=== PATIENT | female | born 1960 | race Caucasian/White ===

== ENCOUNTER 2019-05-02 12:40 | Outpatient (CLI) | payer BC, SELFPAY ==
--- NOTE | ~2019-05-02 | XR_ITS ---
EXAMINATION: XR chest 2V EXAM DATE: 05/02/2019 13:05 INDICATION: Costal margin pain, left-sided chest pain. Bronchitis. TECHNIQUE: Frontal and lateral projections of the chest obtained and reviewed. Comparison is made to prior examination from 01/14/2018. FINDINGS: Mild hyperinflation. The lungs are clear. There are no pleural effusions. The cardiomedi astinal silhouette is within normal limits. There is no pneumothorax suspected. The bones and soft tissues are unremarkable. IMPRESSION: No acute cardiopulmonary findings. Reviewed, dictated and finalized at location B. A ATTORNEY
== END 2019-05-02 12:41 | disposition home or self-care (01) ==
LOC: ANHIMG 12:46
PROVIDERS: PCP Physician Assistant; Visit Provider Physician Assistant
DX: R07.81 Pleurodynia (principal)
CPT/HCPCS: 71046

== ENCOUNTER 2019-08-01 13:11 | Outpatient (CLI) | payer BC, SELFPAY ==
--- NOTE | ~2019-08-01 | MM_ITS ---
EXAMINATION: MM diag cuong implant BI w olimpia HISTORY: Disorder of the breast implant, patient feels implants are more firm than previously at thei r medial and lateral aspects TECHNIQUE: Craniocaudal, mediolateral, and mediolateral oblique 3-D tomosynthesis images with implant displacement of the breasts were performed and synthetic 2-D images were generated. Craniocaudal, m ediolateral oblique, and mediolateral views of the breasts without implant displacement were obtained using full field digital mammography. CAD analysis was submitted and interpreted. COMPARISON: 02/17/2012 BREAST PARENCHYMAL COMPOSITION: There are scattered areas of fibroglandular density. FINDINGS: There is no evidence of suspicious mass, calcification, or architectural distortion in either breast to suggest malignancy. There has been no suspicious interval change. There is no mammographic corre late for the patient's reported breast implant abnormality. IMPRESSION: 1. No mammographic evidence for malignancy or mammographic correlate for the patient's questionable b reast implant abnormality. If implant integrity is in question, consider evaluation with MRI. 2. Recommend routine screening mammography in one year. BI-RADS Category 1: Negative Reviewed, dictated and finalized at location A. IMPRESSION: 1. No mammographic evidence for malignancy or mammographic correlate for the pa tient's questionable breast implant abnormality. If implant integrity is in que stion, consider evaluation with MRI. 2. Recommend routine screening mammography in one year. BI-RADS Category 1: Negative
== END 2019-08-01 13:12 | disposition home or self-care (01) ==
LOC: ANHIMG 13:21
PROVIDERS: PCP Physician Assistant; Visit Provider Physician Assistant
DX: T85.9XXA Unspecified complication of internal prosthetic device, implant and graft, initial encounter (principal)
CPT/HCPCS: 77062; 77066; G0279

== ENCOUNTER 2019-11-01 00:26 | Outpatient (CLI) | payer BC, SELFPAY ==
[2019-11-01 18:41] LABS: SARS-CoV-2 RNA PCR Negative
== END 2019-11-01 00:27 | disposition home or self-care (01) ==
LOC: ANHCOVIDDT 00:27
PROVIDERS: PCP Physician Assistant; Visit Provider Surgery Plastic and Reconstructive Surgery
DX: Z01.812 Encounter for preprocedural laboratory examination (principal); Z20.828 Contact with and (suspected) exposure to other viral communicable diseases
CPT/HCPCS: 87635; C9803; U0003

== ENCOUNTER 2019-11-01 09:00 | Outpatient (CLI) | payer BC, SELFPAY ==
--- NOTE | 2019-11-01 09:01 | ECG_ITS ---
Measurements Intervals [place] Rate: 67 P: 45 UT: 176 QRS: 37 QRSD: 77 T: 46 QT: 386 QTc: 409 Interpretive Statements SINUS RHYTHM RSR' IN V1 OR V2, PROBABLY NORMAL VARIANT BASELINE ARTIFACT- I, II, III, AVL, AVF NORMAL ECG Electronically Signed On 11-01-2019 10:16:01 CDT by Rome Kemp D.O.
== END 2019-11-01 09:01 | disposition home or self-care (01) ==
LOC: ANHSURGERY 09:01
PROVIDERS: PCP Physician Assistant; Visit Provider Surgery Plastic and Reconstructive Surgery
DX: Z01.818 Encounter for other preprocedural examination (principal); E78.00 Pure hypercholesterolemia, unspecified
CPT/HCPCS: 93005

== ENCOUNTER 2019-11-03 01:08 | Day surgery (SDC) | payer BC, SELFPAY ==
[2019-10-18 15:05] VITALS: BMI 29.0
[2019-11-03] VITALS (10 sets, daily range): BP systolic 140–170; BP diastolic 76–84; PULSE 66–81; RESP 15–20; TEMP 36.4–36.9; O2SAT 90–100
--- NOTE | 2019-11-03 09:02 | WPDANESEPPF ---
Anes - Initial Pre Proc Eval Procedure: Operation Date: 11/03/19 10:30 Proposed Procedures p Removal Bilateral Breast Implants - Surinder Long MD Date/Time: 11/03/19 09:02 Surgeon: Surinder Long MD Pre Op Diagnosis: hx of breast augmentation Patient Data Age: 59 Gender: F Height: 5 ft 6 in Weight: 81.65 kg Allergies Allergy/AdvReac Type Severity Reaction Status Date / Time No Known Allergies Allergy Verified 10/18/19 15:06 Home Medications Medication Instructions Recorded Confirmed Type atorvastatin 10 mg PO DAILY 10/18/19 10/18/19 History docusate sodium 100 mg capsule 100 mg PO BID #14 cap 10/18/19 10/18/19 Rx duloxetine 60 mg PO DAILY 10/18/19 10/18/19 History hydrocodone 5 mg-acetaminophen 325 1 tablet PO Q6H PRN #15 tablet 10/18/19 10/18/19 Rx mg tablet multivitamin 1 tablet PO DAILY 10/18/19 10/18/19 History ondansetron HCl 4 mg tablet 4 mg PO Q6H PRN #30 tablet 10/18/19 10/18/19 Rx sumatriptan succinate 100 mg PO DAILY PRN 10/18/19 10/18/19 History zolpidem 12.5 mg PO HS PRN 10/18/19 10/18/19 History Patient hx anesthesia problems: none Family hx anesthesia problems: none PMFSH Past Medical History Medical History (Updated 11/03/19 @ 09:03 by Nick Ham MD) Anxiety Hx of migraines Hyperlipidemia Social History Social History Smoking packs per day: 0.5 Smoking cigarettes per day: 10.0 Years smoked: 5 Smoking pack-years: 2.50 Smoking status: Former smoker Tobacco type: cigarettes Additional smoking assessment comments: QUIT 20 YEARS AGO Alcohol intake: current Spiritual care concerns: No Anes - Eval Final PreProcedure Day of Procedure 11/03/19 09:02 Patient weight: overweight Heart: regular rate and rhythm Lungs: clear to auscultation Airway: Mallampati scale class II Neurological: alert and oriented Last oral intake: >/= 8 hours ASA classification: II Emergent: no Anesthetic plan: proceed Anesthesia type and monitoring: general LMA and standard monitoring Informed Consent: The patient's anesthetic plan and its attendant risks and benefits were discussed with the patient/family/POA. Questions were solicited and answers provided to the satisfaction of the patient/family/POA.
[2019-11-03] MEDS: LACTATED RINGERS 1,000 ML 30 ML IV CONT ×2 (09:10→13:05)
[2019-11-03] MEDS: SCOPOLAMINE 1.5 MG PATCH TRANSDERM (09:28)
--- NOTE | 2019-11-03 10:45 | WPDHPUPDATE1 ---
History and Physical Update Update Date/Time: 11/03/19 10:45 History and Physical has been reviewed, including an updated exam of the patient. There are NO changes in the patient's condition. Risks, benefits, and alternatives have been discussed and questions answered. Patient agrees to proceed with procedure.
--- NOTE | 2019-11-03 11:13 | P.OP_ITS ---
Procedure Note - Detailed Date of procedure: 11/03/19 Pre-op diagnosis: hx of breast augmentation Post-op diagnosis: same Procedure performed: 1. Bilateral implant removal (intact) 2. Bilateral capsulectomy Description of procedure: Patient was marked in the preoperative holding area with her verification. We had a lengthy discussion about risks, benefits, alternatives. As very up front is going to motion all process with such a kory nge in appearance. Further we discussed this may not resolve any of the symptoms she is having. I was very up front honest that I may not be able remove the entire capsule. This was outlined in great detail making sure she was well informed and made an informed decision. All questions answered and consent obtained. She would like proceed. She was taken to the operating room placed supine on the operating room table. Anesthesia was provided by anesthesiology and prepped and draped in a standard sterile fashion. Surgical time-out was taken. 1% lidocaine and 0.25% Marcaine with epinephrine was used to provide a field block. Fifteen blade used to make an incision along the IMF. Dissection was continued down to the capsule was identified. I was able to remove all of the capsule bilateral. Fifteen Lyle drains were brought out laterally and sutured into place. I closed with 2-0 Vicryl followed by 3-0 Monocryl in a running subcuticular 4-0 Monocryl and tissue glue. She was awoke and taken the PACU without difficulty. All instrument sponge counts were correct at the end of the case. Anesthesia: GLMA Surgeon: Surinder Long MD Estimated blood loss (mL): 10 Drains: Yes (Bilateral lyle drain) Packing: No Pathology: yes (Bilateral capsules) Complications: No immediate complications Condition: stable Disposition: PACU Findings: Textured implants
[2019-11-03] MEDS: ceFAZolin 2 GM/D5W 50 ML 2 GM/50 ML BAG IVPB (11:28)
[2019-11-03] MEDS: LIDO 1%/EPINEPHRINE 1:100,000 20 ML VIAL 40 ML INFILTRATE (12:05)
== END 2019-11-03 15:42 | disposition home or self-care (01) ==
PROVIDERS: PCP Physician Assistant; Visit Provider Surgery Plastic and Reconstructive Surgery
PROC: 0HPT0JZ Removal of Synthetic Substitute from Right Breast, Open Approach (ICD-10-PCS; CPT 19371; principal; 2019-11-03 10:30)
DX: Z45.812 Encounter for adjustment or removal of left breast implant (principal); Z45.811 Encounter for adjustment or removal of right breast implant; E66.3 Overweight; Z68.30 Body mass index [BMI] 30.0-30.9, adult; F41.9 Anxiety disorder, unspecified; G43.909 Migraine, unspecified, not intractable, without status migrainosus
CPT/HCPCS: 19371; 88304; 88305; A9270; J0690; J1100; J2250; J2370; J2405; J2704; J3010; J7120

== ENCOUNTER 2019-11-30 00:30 | Day surgery (SDC) | payer BC, SELFPAY ==
[2019-11-29 13:22] VITALS: BMI 27.4
[2019-11-30] VITALS (7 sets, daily range): BP systolic 131–151; BP diastolic 74–86; PULSE 62–78; RESP 14–18; TEMP 36.1–36.2; O2SAT 97–100
--- NOTE | 2019-11-30 09:40 | WPDHPUPDATE1 ---
History and Physical Update Update Date/Time: 11/30/19 09:40 History and Physical has been reviewed, including an updated exam of the patient. There are NO changes in the patient's condition. Risks, benefits, and alternatives have been discussed and questions answered. Patient agrees to proceed with procedure.
--- NOTE | 2019-11-30 09:47 | WPDANESEPPF ---
Anes - Initial Pre Proc Eval Procedure: Operation Date: 11/30/19 11:30 Proposed Procedures p Left Breast Washout - Surinder Long MD Date/Time: 11/30/19 09:47 Surgeon: Surinder Long MD Pre Op Diagnosis: Possible Left Breast Infection Patient Data Age: 59 Gender: F Height: 5 ft 8 in Weight: 88.4 kg Last Vital Signs Temp 36.2 C L 11/30/19 09:40 Pulse 78 11/30/19 09:40 Resp 16 11/30/19 09:40 BP 136/74 11/30/19 09:40 Pulse Ox 99 11/30/19 09:40 Allergies Allergy/AdvReac Type Severity Reaction Status Date / Time No Known Allergies Allergy Verified 11/30/19 09:36 Home Medications Medication Instructions Recorded Confirmed Type atorvastatin 10 mg PO DAILY 10/18/19 11/30/19 History docusate sodium 100 mg capsule 100 mg PO BID #14 cap 10/18/19 11/30/19 Rx duloxetine 60 mg PO DAILY 10/18/19 11/30/19 History hydrocodone 5 mg-acetaminophen 325 1 tablet PO Q6H PRN #15 tablet 10/18/19 11/30/19 Rx mg tablet multivitamin 1 tablet PO DAILY 10/18/19 11/30/19 History ondansetron HCl 4 mg tablet 4 mg PO Q6H PRN #30 tablet 10/18/19 11/30/19 Rx sumatriptan succinate 100 mg PO DAILY PRN 10/18/19 11/30/19 History zolpidem 12.5 mg PO HS PRN 10/18/19 11/30/19 History Patient hx anesthesia problems: post op nausea/vomiting Family hx anesthesia problems: none PMFSH Past Medical History Medical History Anxiety Hx of migraines Hyperlipidemia Social History Social History Smoking packs per day: 0 Smoking cigarettes per day: 0.0 Years smoked: 15 Smoking pack-years: 0.00 Smoking status: Former smoker Tobacco type: cigarettes Additional smoking assessment comments: QUIT 20 YEARS AGO Alcohol intake: never Substance use: never Substance use type: does not use Last use: 1999 Living arrangements: with family Gender identity (if verbalized by the patient): Female Sexual Orientation (if Verbalized by the Patient): Straight or Heterosexual Spiritual care concerns: No Anes - Eval Final PreProcedure Day of Procedure 11/30/19 09:47 Patient weight: overweight Heart: regular rate and rhythm Lungs: clear to auscultation Airway: Mallampati scale class II Neurological: alert and oriented Last oral intake: >/= 8 hours ASA classification: III Emergent: no Anesthetic plan: proceed Anesthesia type and monitoring: general LMA and standard monitoring Informed Consent: The patient's anesthetic plan and its attendant risks and benefits were discussed with the patient/family/POA. Questions were solicited and answers provided to the satisfaction of the patient/family/POA.
[2019-11-30] MEDS: LACTATED RINGERS 1,000 ML 30 ML IV CONT (09:48)
--- NOTE | 2019-11-30 09:54 | PM.PROC ---
Procedure Note - Detailed Date of procedure: 11/30/19 Pre-op diagnosis: Possible Left Breast Infection Left breast hematoma Post-op diagnosis: same Procedure performed: washout left breast Description of procedure: She underwent bilateral implant removal with bilateral capsulectomy on 11/03/2019. Soon after the procedure her left drain had limited output / did not appear to be functioning well. She developed some fluid collection old hematoma in left breast. Cultures were taken from the left breast identified Staph Aureus however she has never had any clinical signs of infection. She has elected to proceed to the operating room for formalized washout of left breast hematoma and drain placement. Risks, benefits, alternatives were discussed in extensive detail. I want her to be very realistic about the risks involved as well as expectations. Made sure answered all of her questions to her satisfaction and consent obtained. She was marked in the preoperative holding area with her verification. She was taken to the operating room placed supine on the operating room table. Anesthesia was provided by anesthesiology and prepped and draped in a standard sterile fashion. Surgical time-out was taken. 1% lidocaine and 0.25% Marcaine with epinephrine was used to provide a field block. A 15 blade used to excise along the previous IMF scar. Under the pocket and old hematoma was identified. I did not see any purulence. I copiously irrigated with 3 L of saline solution on TUR tubing. A 15 Freeman drain was placed and brought out axillary. Hemoderm was used. This was sutured with 3-0 nylon. I closed the incision with 2-0 Vicryl followed by 3-0 Monocryl in a running subcuticular 4-0 Monocryl and tissue glue. She tolerated well. No active bleeding was identified. She was woken taken the PACU without difficulty. All instrument sponge counts were correct at the end of the case. Surgeon: Surinder Long MD Estimated blood loss (mL): 10 Drains: Yes ( Left Freeman drain) Packing: No Pathology: none sent Complications: No immediate complications Condition: stable Disposition: PACU Findings: Old hematoma. No robin purulence.
[2019-11-30] MEDS: SCOPOLAMINE 1.5 MG PATCH TRANSDERM (09:55)
[2019-11-30] MEDS: ceFAZolin 2 GM/D5W 50 ML 2 GM/50 ML BAG IVPB (10:06)
[2019-11-30] MEDS: LIDO 1%/EPINEPHRINE 1:100,000 20 ML VIAL 15 ML INFILTRATE (10:06)
--- NOTE | 2019-11-30 11:00 | SUR.OPER ---
EBL:20
== END 2019-11-30 13:20 | disposition home or self-care (01) ==
PROVIDERS: PCP Physician Assistant; Visit Provider Surgery Plastic and Reconstructive Surgery
PROC: (CPT 10140; principal; 2019-11-30 11:30)
DX: L76.34 Postprocedural seroma of skin and subcutaneous tissue following other procedure (principal); F41.9 Anxiety disorder, unspecified; E78.5 Hyperlipidemia, unspecified; Z87.891 Personal history of nicotine dependence
CPT/HCPCS: 10140; A9270; J0690; J1100; J2250; J2370; J2405; J2704; J3010; J7120

== ENCOUNTER 2020-01-29 21:50 | Outpatient (NON) | payer BC, SELFPAY | END 2020-01-29 21:51 | LOC: ANHLAB 21:54 | PROVIDERS: PCP Physician Assistant; Visit Provider Surgery Plastic and Reconstructive Surgery | DX: T14.8XXA Other injury of unspecified body region, initial encounter (principal) | CPT/HCPCS: 87070; 87075; 87147; 87186; 87205 ==

== ENCOUNTER 2020-02-13 10:02 | Outpatient (CLI) | payer BC, SELFPAY ==
--- NOTE | ~2020-02-13 | XR_ITS ---
EXAMINATION: XR heel LT min 2V DATE: 02/13/2020 11:07 INDICATION: Left heel pain. TECHNIQUE: 2 views of left calcaneus were obtained. COMPARISON: None. FINDINGS: Bone alignment is normal. No fracture. Joint spaces are normal. There are enthesophytes at the posterior and plantar aspects of calcaneal tuberosity. IMPRESSION: 1. No fracture. Reviewed, dictated and finalized at location A. UME RENTAL CLERK IMPRESSION: 1. No fracture.
--- NOTE | ~2020-02-13 | US_ITS ---
EXAMINATION:US venous doppler LE BI INDICATION:Leg pain and swelling TECHNIQUE: Multiple grayscale, color flow and Doppler images of the right and left lower extremity de ep venous systems were obtained and reviewed. COMPARISON:No prior studies for comparison. FINDINGS: The common femoral, superficial femoral and popliteal veins demonstrate normal respiratory variation, augmentation and compressibility. Color flow is also seen within the posterior tibial, pe roneal, greater saphenous and profunda veins. IMPRESSION: 1: No lower extremity deep venous thrombosis. Reviewed, dictated and finalized at location A. O ADJUSTER
== END 2020-02-13 10:03 | disposition home or self-care (01) ==
PROVIDERS: PCP Physician Assistant; Visit Provider Physician Assistant
DX: R60.0 Localized edema (principal); M79.672 Pain in left foot
CPT/HCPCS: 73650; 93970

== ENCOUNTER 2020-02-28 12:32 | Outpatient (CLI) | payer BC, SELFPAY ==
--- NOTE | 2020-02-28 | ECHO_ITS ---
Patient Info Name: Jennyfer Cancino Age: 60 years : 1960 Gender: Female Ht: 66 in Wt: 180 lbs BSA: 1.97 m2 HR: 67 bpm BP: 137 / 88 mmHg Heart Rhythm: Sinus Rhythm Technical Quality: Good Exam Date: 02/28/2020 1:18 PM Exam Location: [facility] Patient Status: Outpatient Admit Date: 02/28/2020 Staff Ordering Physician: SorenPayal PA-C Overnight Associate: Naseem Foster RDCS Attending Provider: PaigePayal PA-C Exam Type: CA echo doppler color flow Study Info Indications R60.0 - Localized edema Complete two-dimensional, color flow and Doppler transthoracic echocardiogram is performed. History/Risk Factors Edema. Summary 1. Complete two-dimensional, color flow and Doppler transthoracic echocardiogram is performed. 2. Left ventricular chamber size, wall thickness, systolic and diastolic function are normal with no regional wall motion abnormalities with an estimated ejection fraction of 65-70%. 3. There is mild tricuspid valve regurgitation. 4. Borderline pulmonary hypertension, estimated pulmonary arterial systolic pressure is 38 mmHg. 5. Normal sinus rhythm. Left Ventricle Left ventricular chamber dimension is normal. Left ventricular systolic function is normal, estimated at 65-70%. There is no increased left ventricular wall thickness. Left ventricular septal wall motion is normal. The left ventricular diastolic function is normal. Left ventricular chamber size, wall thickness, systolic and diastolic function are normal with no regional wall motion abnormalities with an estimated ejection fraction of 65-70%. Right Ventricle Right ventricular chamber dimension is normal. Right ventricular systolic function is normal. Left Atria Left atrial chamber dimension is normal. Right Atria Right atrial chamber dimension is normal. Aortic Valve The aortic valve is trileaflet. There is no aortic valve sclerosis. There is no aortic valve stenosis. There is trace aortic valve regurgitation. Pulmonic Valve The pulmonic valve is normal. There is no pulmonic valve stenosis. There is trace pulmonic regurgitation. Mitral Valve The mitral valve has normal leaflets. There is no mitral valve stenosis. There is trace mitral valve regurgitation. Tricuspid Valve The tricuspid valve leaflets are normal. There is no significant tricuspid valve stenosis. There is mild tricuspid valve regurgitation. Borderline pulmonary hypertension, estimated pulmonary arterial systolic pressure is 38 mmHg. Pericardium/Pleural The pericardium appears normal. There is no pericardial effusion. Inferior Vena Cava Dilated inferior vena cava with >50% collapse upon inspiration consistent with Empty right atrial pressure, 5 mmHg. Aorta The aortic root size at the sinus of Valsalva is normal. The prox ascending aorta size is normal. Left Ventricular Outflow Tract Name Value Normal LVOT 2D LVOT Diameter 2.0 cm LVOT Doppler LVOT Peak Gradient 5 mmHg LVOT Mean Gradient 3 mmHg LVOT VTI
== END 2020-02-28 12:33 | disposition home or self-care (01) ==
PROVIDERS: PCP Physician Assistant; Visit Provider Physician Assistant
DX: R60.0 Localized edema (principal); I36.1 Nonrheumatic tricuspid (valve) insufficiency
CPT/HCPCS: 93306; C8929

== ENCOUNTER → 2020-03-26 11:36 | Outpatient (CLI) | payer BC, SELFPAY ==
--- NOTE | ~2020-03-26 | CT_ITS ---
EXAMINATION: CT abdomen pelvis w con DATE: 03/26/2020 12:02 INDICATION: Abdominal distention TECHNIQUE: Computed tomography (CT) of the abdomen and pelvis was performed with 100 cc Omnipaque 350 intravenous contrast. Automated exposure control and iterative reconstruction technique were employe d. Exam dose: 869.35 mGy-cm total exam DLP. COMPARISON: None. FINDINGS: There is minimal atelectasis at the lung bases. Normal heart size. No pericardial or pleura l effusion. Small sliding hiatal hernia. The liver, gallbladder, spleen, bile ducts, pancreas, pancreatic duct and adrenal glands appear jesse l. No renal mass lesion or urinary tract calculus or hydroureteronephrosis or abnormality of the urin naman bladder is evident. Retroverted uterus. There is an approximately 6.2 x 6.4 x 6.7 cm complex mixed cystic and solid mass in the right adnexal area. Pelvic ultrasound is recommended for further evaluation of likely right ovarian mass. Normal caliber and minimal atherosclerotic calcification of the abdominal aorta. No intraperitoneal o r retroperitoneal or pelvic lymphadenopathy is noted. Normal appendix. There is a prominent amount of fecal material in the colon but no evidence of bowel obstruction, bowel wall thickening, pneumatosis or intraperitoneal free air. Very small fat-containing umbilical hernia. Included skeletal structures are unremarkable. IMPRESSION: 6.2 x 6.4 x 6.7 cm complex mixed cystic and solid mass of right adnexal area, likely of ovarian etiology. Consider pelvic ultrasound for further evaluation. Small sliding hiatal hernia Reviewed, dictated and finalized at Location A. Reviewed, dictated and finalized at location B. LOPMENT ADVISOR IMPRESSION: 6.2 x 6.4 x 6.7 cm complex mixed cystic and solid mass of right ad nexal area, likely of ovarian etiology. Consider pelvic ultrasound for further evaluation. Small sliding hiatal hernia
== END ==
PROVIDERS: PCP Physician Assistant; Visit Provider Physician Assistant
DX: R14.0 Abdominal distension (gaseous) (principal); R19.03 Right lower quadrant abdominal swelling, mass and lump; K44.9 Diaphragmatic hernia without obstruction or gangrene
CPT/HCPCS: 74177; Q9967

== ENCOUNTER → 2020-04-17 11:29 | Outpatient (CLI) | payer BC, SELFPAY ==
--- NOTE | ~2020-04-17 | US_ITS ---
EXAMINATION: US pelvic complete w TV DATE: 04/17/2020 11:57 INDICATION: Noninflammatory disorder of uterus. TECHNIQUE: Multiple transabdominal and transvaginal sonographic images of the pelvis were obtained. COMPARISON: CT abdomen and pelvis 03/26/2020 FINDINGS: TRANSABDOMINAL ULTRASOUND: The uterus measures 5.3 x 4.1 x 2.6 cm. There is no free fluid in the pelvis. TRANSVAGINAL ULTRASOUND: The endometrial complex measures 6 mm in thickness. There is a 2.4 x 1.9 x 1.3 cm hypoechoic subseros al uterine fibroid. There is a 6.1 x 6.4 x 6.4 cm solid and cystic mass in right adnexa with vascular flow. The left ovary measures 5.0 x 2.4 x 3.9 cm with vascular flow. IMPRESSION: 1. Enlarged ovaries,, likely metastatic disease from peritoneal carcinomatosis. Ultrasound-guided cor e needle biopsy of a peritoneal mass is recommended. Reviewed, dictated and finalized at location A. NICAL SERVICE REP IMPRESSION: 1. Enlarged ovaries,, likely metastatic disease from peritoneal carcinomatosis. Ultrasound-guided core needle biopsy of a peritoneal mass is recommended.
== END ==
PROVIDERS: PCP Physician Assistant; Visit Provider Physician Assistant
DX: N85.8 Other specified noninflammatory disorders of uterus (principal)
CPT/HCPCS: 76830; 76856

== ENCOUNTER 2020-05-15 07:37 | Outpatient (RCR) | payer BC, SELFPAY ==
[2020-03-05 08:00] VITALS: BMI 29.1
--- NOTE | 2020-03-13 13:02 | WPDPN ---
Progress Note: A&P Assessment and Plan (1) Open wound: Code(s): T14.8XXA - Other injury of unspecified body region, initial encounter Status: Acute Assessment and Plan: Left breast wound is healing. She will continue dressing changes. Follow-up. She has a full list of instructions. Understands what to monitor for. She is going to call with any questions or concerns. (2) History of breast augmentation: Code(s): Z98.82 - Breast implant status Status: Acute (3) Ruptured silicone breast implant: Code(s): T85.43XA - Leakage of breast prosthesis and implant, initial encounter Status: Acute (4) Capsular contracture of breast implant: Code(s): T85.44XA - Capsular contracture of breast implant, initial encounter Status: Acute Review of Systems Review of Systems: All systems reviewed & are unremarkable except as noted in HPI and below Exam Narrative: Exam Narrative: Left breast wound continues to decrease in size. There is no signs of infection. No hematoma. No seroma. See wound care notes. Const: General: comfortable, no acute distress, alert and awake; No acute distress Orientation/consciousness: oriented to person HENMT: Head: normal to inspection Ears: external ears normal General nose exam: Normal external nose present Face and sinus: normal facial exam Eyes: General: appearance normal, both eyes and all related structures Periorbital: periorbital findings normal Eyelids: eyelids normal Conjunctivae: conjunctivae normal Neck: Neck: normal visual inspection Chest: Chest palpation & inspection: normal inspection of the chest Resp: Effort & Inspection: normal respiratory effort and able to speak in complete sentences GI: Inspection: normal to inspection Neuro: General: oriented to person Psych: Appearance: grossly normal Mental Status: mental status grossly normal Objective Data Meds/Results Medications: Active Medications Generic Name Dose Route Start Last Admin Trade Name Freq PRN Reason Stop Dose Admin Mupirocin 1 applic 03/05/20 08:38 Mupirocin 2% Oint 22 Gm Tube TOPICAL 06/03/20 23:55 PRN PRN Wound Care Silver Nitrate 1 each 03/05/20 08:38 Silv Nitrat (Aqua Ag Rope) 1 Ea Bandage (*Bkc) TOPICAL 06/03/20 23:55 PRN PRN Wound Care Subjective Date/time seen: 12/23/20 13:02 She is here today in follow-up of her left breast wound. Doing very well. No complaints. No fevers or chills. No nausea vomiting. No shortness of breath. No chest pain. She says overall she is feeling quite a bit better (BII symptoms)
--- NOTE | 2020-03-27 15:24 | WPDPN ---
Progress Note: A&P Assessment and Plan (1) Open wound: Code(s): T14.8XXA - Other injury of unspecified body region, initial encounter Status: Acute Assessment and Plan: Left breast continues to heal. Continue dressing changes. Follow-up. She has a full list of instructions. Understands what to monitor for. She is going to call with any questions or concerns. (2) History of breast augmentation: Code(s): Z98.82 - Breast implant status Status: Acute (3) Ruptured silicone breast implant: Code(s): T85.43XA - Leakage of breast prosthesis and implant, initial encounter Status: Acute (4) Capsular contracture of breast implant: Code(s): T85.44XA - Capsular contracture of breast implant, initial encounter Status: Acute Review of Systems Review of Systems: All systems reviewed & are unremarkable except as noted in HPI and below Exam Narrative: Exam Narrative: Left breast wound continues to decrease in size. I see no signs of infection. No purulence. No fluctuance. Objective Data Meds/Results Medications: Active Medications Generic Name Dose Route Start Last Admin Trade Name Freq PRN Reason Stop Dose Admin Mupirocin 1 applic 03/05/20 08:38 Mupirocin 2% Oint 22 Gm Tube TOPICAL 06/03/20 23:55 PRN PRN Wound Care Silver Nitrate 1 each 03/05/20 08:38 Silv Nitrat (Aqua Ag Rope) 1 Ea Bandage (*Bkc) TOPICAL 06/03/20 23:55 PRN PRN Wound Care Subjective Date/time seen: 03/27/20 15:24 She is here today in follow-up of her left breast wound. Doing very well. No complaints. No fevers or chills. No nausea vomiting. No shortness of breath. No chest pain. Again today she states that her systemic symptoms are improved (possible BII symptoms)
--- NOTE | 2020-04-16 13:49 | PCWOUND ---
wocn note patient did not show up for appointment. Patient called very apologetic that she missed her appointment. Rescheduled for 04/24/20 at 1000.
== END 2020-06-03 23:59 | disposition home or self-care (01) ==
LOC: ANHWOC 07:37
PROVIDERS: PCP Physician Assistant; Visit Provider Surgery Plastic and Reconstructive Surgery
DX: S21.002D Unspecified open wound of left breast, subsequent encounter (principal)
CPT/HCPCS: 99211; 99212; 99213; A9270; G0463

== ENCOUNTER 2020-12-08 19:57 | Inpatient (IN) | payer BC, SELFPAY ==
--- NOTE | ~2020-12-08 | XR_ITS ---
EXAMINATION: XR abdomen NG/feed tube insert DATE: 12/12/2020 03:57 INDICATION: Nasogastric tube placement. TECHNIQUE: An upright view of the abdomen was obtained. COMPARISON: CT abdomen and pelvis 12/11/2020 FINDINGS: The lower abdomen is not included. The nasogastric tube tip is in the stomach. There are sm all pleural effusions. There are airspace opacities at the lung bases. There is a right internal jugu lar port with tip in superior vena cava. Calcified mediastinal lymph nodes are consistent with old gr anulomatous disease. IMPRESSION: 1. Nasogastric tube tip in the stomach. 2. Small pleural effusions. 3. Airspace opacities at the lung bases, consistent with atelectasis versus pneumonia. Reviewed, dictated and finalized at location A. IMPRESSION: 1. Nasogastric tube tip in the stomach. 2. Small pleural effusions. 3. Airspace opacities at the lung bases, consistent with atelectasis versus pne umonia.
--- NOTE | ~2020-12-08 | US_ITS ---
US renal BI 12/09/2020 16:28 Procedure: Realtime transabdominal ultrasound of the kidneys and bladder. Indication: Urinary retention. Acute renal insufficiency. Comparison: No prior studies for comparison. Findings: Renal echotexture is normal bilaterally without hydronephrosis, contour deforming mass or r enal calculus. The right kidney measures 9.3 cm and left kidney measures 9.6 cm. There is a Carter cat heter in the bladder. There is ascites. Impression: 1: Unremarkable renal ultrasound. No stones, masses or hydronephrosis. 2: Ascites. Reviewed, dictated and finalized at location A. Impression: 1: Unremarkable renal ultrasound. No stones, masses or hydronephrosis. 2: Ascites.
--- NOTE | ~2020-12-08 | CT_ITS ---
EXAMINATION: CT chest abdomen pelvis wo con DATE: 12/11/2020 09:03 INDICATION: Leukocytosis. TECHNIQUE: Computed tomography (CT) of the chest, abdomen, and pelvis was performed without intraveno us contrast. Automated exposure control and iterative reconstruction technique were employed. The dos e-length product was 1174.19 mGy-cm. COMPARISON: CT abdomen and pelvis 03/26/2020 FINDINGS: CHEST CT: There is mild scarring at the lung apices. There is mild atelectasis in the inferior lungs. There are small pleural effusions. A calcified left lung nodule and calcified left hilar and mediastinal lymph nodes are consistent with old granulomatous disease. There is a right internal jugular port with tip in superior vena cava. The heart size is normal. No pericardial effusion. There is a small sliding h iatal hernia. There is mild thoracic spondylosis. ABDOMEN/PELVIS CT: The liver is normal. There is contrast in the gallbladder. The spleen, pancreas, adrenal glands, and kidneys are normal. There are multiple dilated loops of small bowel with proximal and distal transiti on points in close proximity in right abdomen with mesenteric edema, consistent with closed loop obst ruction. Small bowel is also dilated proximal to the closed loop obstruction. There is a moderate vol ume of ascites. There are likely changes of omentectomy and debulking of peritoneal carcinomatosis. T here are no pathologically enlarged lymph nodes. There is mild lumbar spondylosis. IMPRESSION: 1. Closed loop small bowel obstruction. 2. Moderate volume of ascites. 3. Small pleural effusions. Reviewed, dictated and finalized at location A.
[2020-12-08 19:59] VITALS: BP 145/99; PULSE 114; RESP 20; TEMP 36.4; O2SAT 98
[2020-12-08 20:18] LABS: Basophils Percent Auto 0.2 % (0.2-1.2); Hematocrit 50.7 % (37.0-47.0); Immature Granulocyte Absolute 0.06 K/mm3 (0.00-0.031); Immature Granulocyte Percent A 0.4 % (0-0.5); Lymphocytes Percent Auto 5.4 % (18.3-44.2); Mean Corpuscular HGB Conc 33.5 g/dl (32-36); Mean Corpuscular Hemoglobin 33.1 pg (26-34); Mean Corpuscular Volume 98.6 fl (80-100); Mean Platelet Volume 9.4 fl (7.4-10.4); Monocytes Absolute Auto 0.6 K/mm3 (0.1-0.6); Monocytes Percent Auto 3.4 % (2.6-8.5); Neutrophils Percent Auto 90.6 % (45.5-73.1); Platelet Count Result 307 k/mm3 (150-375); Red Blood Count 5.14 M/mm3 (4.2-5.4); Red Cell Distribution Width 15.9 % (11.5-14.5); White Blood Count 16.6 K/mm3 (4.5-10.0)
[2020-12-08 20:28] LABS: Alanine Aminotransferase 28 U/L (4-35); Albumin Level 4.8 g/dL (3.5-5.1); Alkaline Phosphatase 92 U/L (38-126); Anion Gap 15 mmol/L (8-16); Aspartate Amino Transferase 30 U/L (14-36); Bilirubin,Total 0.4 mg/dL (0.2-1.3); Blood Urea Nitrogen 29 mg/dL (7-17); Calcium 9.7 mg/dL (8.4-10.2); Carbon Dioxide 22 mmol/L (22-30); Chloride 102 mmol/L (98-107); Estimated CRCL calculation 63 ml/min; Estimated Glomerular Filt Rate > 60; Glucose 209 mg/dL (65-110); Lipase 40 U/L (23-300); Potassium 4.7 mmol/L (3.4-5.0); Sodium 139 mmol/L (137-145)
[2020-12-08] MEDS: ONDANSETRON INJ 4 MG/2 ML VIAL IV PUSH (22:33)
[2020-12-08] MEDS: MORPHINE SULFATE (*CRX) 4 MG/ML INJ IV PUSH (22:33)
[2020-12-08] MEDS: SODIUM CHLORIDE 0.9% IV 1,000 ML 999 ML IV CONT (22:33)
--- NOTE | 2020-12-08 22:55 | ED.GENADULT ---
HPI - General Adult General Chief complaint: Abdominal Pain Stated complaint: Abd painc n/v, seen at [facility] Time Seen by Provider: 12/08/20 21:19 History of Present Illness HPI narrative: Patient 60-year-old female presents emerged department with chief complaint of abdominal pain. Patient reports she was seen at [facility] earlier and told that she had some inflammation in her bowel patient was given a prescription for nausea medication and pain medication and discharged home. Patient returns to our emergency department after she is continued to have abdominal pain reports not improved by anything and reports the medications are not working patient denies fever denies chills. Related Data Home Medications Medication Instructions Recorded Confirmed atorvastatin 10 mg PO DAILY 10/18/19 03/05/20 duloxetine 60 mg PO DAILY 10/18/19 11/30/19 multivitamin 1 tablet PO DAILY 10/18/19 03/05/20 sumatriptan succinate 100 mg PO DAILY PRN 10/18/19 03/05/20 zolpidem 12.5 mg PO HS PRN 10/18/19 03/05/20 Allergies Allergy/AdvReac Type Severity Reaction Status Date / Time No Known Allergies Allergy Verified 02/28/20 15:39 Review of Systems Review of Systems: A 10 system review of systems was completed on the patient and is negative except for what is stated in the HPI. Nursing and ancillary documentation was reviewed. [facility] Past Medical History Medical History (Updated 12/09/20 @ 01:42 by Chavez Aldana MD) Anxiety Hx of migraines Hyperlipidemia Social History Social History Smoking packs per day: 0 Smoking cigarettes per day: 0.0 Years smoked: 15 Smoking pack-years: 0.00 Smoking status: Former smoker Tobacco type: cigarettes Additional smoking assessment comments: QUIT 20 YEARS AGO Alcohol intake: never Substance use: never Substance use type: does not use Last use: 1999 Gender identity (if verbalized by the patient): Female Sexual Orientation (if Verbalized by the Patient): Straight or Heterosexual Spiritual care concerns: No Exam Narrative: GENERAL: Well-appearing, well-nourished, and in no acute distress. HEAD: Normocephalic, atraumatic. EYES: PERRLA and EOMI. ENT: Nares clear, no rhinorrhea or epistaxis. Mucous membranes moist. NECK: Supple. CHEST: Clear to auscultation. No respiratory distress. HEART: Regular rate and rhythm. No murmur heard. Normal peripheral pulses. ABDOMEN: Soft, nontender, nondistended, normal active bowel sounds. EXTREMITIES: Normal range of motion. No edema. SKIN: Warm, dry, no rash. NEURO: No focal deficits. Alert and oriented x3. PSYCH: Normal mood and affect. Course Vital Signs Vital signs: Vital Signs Temperature 36.4 C 12/08/20 19:59 Pulse Rate 114 H 12/08/20 19:59 Respiratory Rate 20 12/08/20 19:59 Blood Pressure 145/99 H 12/08/20 19:59 Pulse Oximetry 98 12/08/20 19:59 Temperature 36.4 C 12/08/20 19:59 Pulse Rate 102 H 12/09/20 00:42 Respiratory Rate 20 12/09/20 00:42 Blood Pressure 151/104 H 12/09/20 00:42 Pulse Oximetry 95 12/09/20 00:42 Medical Decision Making Vital Signs Vital Signs: Vital Signs Temperature 36.4 C 12/08/20 19:59 Pulse Rate 114 H 12/08/20 19:59 Respiratory Rate 20 12/08/20 19:59 Blood Pressure 145/99 H 12/08/20 19:59 Pulse Oximetry 98 12/08/20 19:59 Temperature 36.4 C 12/08/20 19:59 Pulse Rate 102 H 12/09/20 00:42 Respiratory Rate 20 12/09/20 00:42 Blood Pressure 151/104 H 12/09/20 00:42 Pulse Oximetry 95 12/09/20 00:42 Lab Data Result diagrams: 12/08/20 20:11 12/08/20 20:11 Labs: Lab Results 12/08/20 12/08/20 Range/Units 20:11 20:11 WBC 16.6 H (4.5-10.0) K/mm3 RBC 5.14 (4.2-5.4) M/mm3 Hgb 17.0 H (12.0-15.0) g/dL Hct 50.7 H (37.0-47.0) % MCV 98.6 (80-100) fl MCH 33.1 (26-34) pg MCHC 33.5 (32-36) g/dl RDW 1
[2020-12-09] VITALS (8 sets, daily range): BP systolic 104–151; BP diastolic 72–104; PULSE 67–112; RESP 18–20; TEMP 35.7–37; O2SAT 94–98; BMI 10.2
[2020-12-09] MEDS: MORPHINE SULFATE (*CRX) 4 MG/ML INJ IV PUSH ×7 (00:39→21:50)
[2020-12-09] MEDS: metroNIDAZOLE 500 MG/ISO 100ML 500 MG/100 ML BAG 100 MG IVPB ×5 (02:32→23:55)
--- NOTE | 2020-12-09 02:53 | PM.IMHP ---
H&P: HPI History of Present Illness Date/Time: 12/09/20 02:53 Chief Complaint: Abdominal pain Narrative: This is a 60-year-old female with past medical history significant for ovarian CA status post hysterectomy with salpingo-oophorectomy patient just completed chemotherapy in August she presented to the emergency room due to worsening abdominal pain after she was discharged from the emergency room at [facility]. Patient states that last week Wednesday she had a colonoscopy where she had ulcers that were found and was sent home biopsies are pending. She started having abdominal pain there was no blood or mucus in the stool no nausea or vomiting. A CT of abdomen and pelvis showed area of enterocolitis. Patient denies any fevers rigors or chills has not been able to eat due to pain. Preliminary workup in our emergency room showed a WBC of 16,000. Decision has been made to place the patient in observation for further management and evaluation. Review of Systems Review of Systems: Abdominal pain diffusely localized Constitutional: Constitutional: Denies chills, Denies fatigue, Denies fever(s), Denies malaise and Denies weakness Eyes: Eyes: Denies change in vision ENT: Denies dysphagia, Denies nasal congestion, Denies nasal discharge, Denies nasal obstruction and Denies odynophagia Cardiovascular: Cardiovascular: Denies radiating jaw, neck or arm pain, Denies palpitations, Denies dyspnea on exertion and Denies orthopnea Respiratory: Respiratory: Denies cough and Denies dyspnea Gastrointestinal: Gastrointestinal: Reports abdominal pain, Denies dyspepsia, Denies heartburn, Denies diarrhea, Denies nausea and Denies vomiting Genitourinary: Genitourinary: Reports no additional female genitourinary complaints Musculoskeletal: Musculoskeletal: Reports no additional musculoskeletal complaints Integumentary/Breasts: Skin/Breast: Reports system reviewed and no additional complaints, except as docu Neurologic: Reports system reviewed and no additional complaints, except as documented Psychiatric: Psychiatric: Reports no additional psychiatric complaints Endocrine: Endocrine: Reports no additional endocrine complaints Hematologic/Lymphatic: Hematologic/Lymphatic: Reports no additional hematologic/lymphatic complaints Allergic/Immunologic: Allergic/Immunologic: Reports no additional allergic/immunologic complaints PMFSH Past Medical History Medical History (Updated 12/09/20 @ 03:01 by Daniella Cole MD) Anxiety Hx of migraines Hyperlipidemia Social History Social History Smoking packs per day: 0 Smoking cigarettes per day: 0.0 Years smoked: 15 Smoking pack-years: 0.00 Smoking status: Former smoker Tobacco type: cigarettes Additional smoking assessment comments: QUIT 20 YEARS AGO Alcohol intake: never Substance use: never Substance use type: does not use Last use: 2000 Gender identity (if verbalized by the patient): Female Sexual Orientation (if Verbalized by the Patient): Straight or Heterosexual Spiritual care concerns: No Meds Home Medications and Allergies Home Medications Medication Instructions Recorded Confirmed Type atorvastatin 10 mg PO DAILY 10/18/19 03/05/20 History duloxetine 60 mg PO DAILY 10/18/19 11/30/19 History multivitamin 1 tablet PO DAILY 10/18/19 03/05/20 History sumatriptan succinate 100 mg PO DAILY PRN 10/18/19 03/05/20 History zolpidem 12.5 mg PO HS PRN 10/18/19 03/05/20 History Allergies Allergy/AdvReac Type Severity Reaction Status Date / Time No Known Allergies Allergy Verified 02/28/20 15:39 Vital Signs Vital Signs - 24 hr 12/08/20 19:59 12/09/20 00:42 Temperature 97.6 F Pulse Rate 114 H 102 H Respiratory Rate 20 20 Blood Pressure 145/99 H 151/104 H Pulse Oximetry 98 95 Exam Narrative: Laying in rios Const: General: cooperative, comfortable, no acute distress, well
[2020-12-09] MEDS: SODIUM CHLORIDE 0.9% IV 1,000 ML 125 ML IV CONT ×2 (03:33→12:35)
--- NOTE | 2020-12-09 03:43 | ADMGEN ---
This patient, Jennyfer Cancino, was admitted to [facility] Surg Room 316-02. Patient/family oriented to hospital policies and general routines including ID bracelet, bed and alarms, visiting hours, pain management, procedures, bathroom and other care routines, personal items, smoking policy, room service/diet, and visiting hours. Information on how to activate the Rapid Response Team has been discussed. Patient/Family are encouraged to report perceived risks to care and to ask questions if they do not understand what they are told or what they should do.
[2020-12-09 10:44] LABS: Basophils Absolute Auto 0.1 K/mm3 (0.0-0.1); Basophils Percent Auto 0.3 % (0.2-1.2); Hematocrit 48.6 % (37.0-47.0); Hemoglobin 15.8 g/dL (12.0-15.0); Immature Granulocyte Absolute 0.08 K/mm3 (0.00-0.031); Immature Granulocyte Percent A 0.4 % (0-0.5); Lymphocytes Absolute Auto 1.07 K/mm3 (0.9-3.2); Lymphocytes Percent Auto 5.5 % (18.3-44.2); Mean Corpuscular HGB Conc 32.5 g/dl (32-36); Mean Corpuscular Hemoglobin 32.8 pg (26-34); Mean Platelet Volume 9.9 fl (7.4-10.4); Monocytes Absolute Auto 1.9 K/mm3 (0.1-0.6); Monocytes Percent Auto 9.6 % (2.6-8.5); Neutrophils Absolute Auto 16.4 K/mm3 (1.3-6.7); Neutrophils Percent Auto 84.2 % (45.5-73.1); Platelet Count Result 324 k/mm3 (150-375); Red Blood Count 4.81 M/mm3 (4.2-5.4); Red Cell Distribution Width 16.4 % (11.5-14.5); White Blood Count 19.5 K/mm3 (4.5-10.0)
[2020-12-09 10:55] LABS: Anion Gap 8 mmol/L (8-16); Blood Urea Nitrogen 41 mg/dL (7-17); Calcium 7.6 mg/dL (8.4-10.2); Carbon Dioxide 26 mmol/L (22-30); Chloride 101 mmol/L (98-107); Estimated CRCL calculation 19 ml/min; Estimated Glomerular Filt Rate 42; Glucose 128 mg/dL (65-110); Sodium 135 mmol/L (137-145)
[2020-12-09 12:20] LABS: CRP 4.7 mg/dL (<1.0); Magnesium 1.7 mg/dL (1.6-2.3)
[2020-12-09] MEDS: ATORVASTATIN 10 MG TABLET PO (12:36)
[2020-12-09] MEDS: DULoxetine HCL 60 MG CAPSULE.DR PO (12:37)
[2020-12-09] MEDS: METOPROLOL SUCCINATE EXT REL 25 MG TABCR PO (12:37)
[2020-12-09] MEDS: PANTOPRAZOLE SODIUM IV 40 MG VIAL IV PUSH ×2 (12:39→21:50)
[2020-12-09] MEDS: HEPARIN SODIUM LOCK FLUSH 500 UNITS/5 ML VIAL IV PUSH (12:42)
[2020-12-09] MEDS: CENTRAL LINE FLUSH 10 ML IV PUSH ×2 (12:43→21:53)
--- NOTE | 2020-12-09 13:09 | PM.IMPN ---
Progress Note: A&P Assessment and Plan (1) Enteritis: Code(s): K52.9 - Noninfective gastroenteritis and colitis, unspecified Status: Acute Assessment and Plan: The patient seeks most of her care at [facility] especially since she is currently undergoing maintenance therapy (every 3 weeks, due 12/09/20) for ovarian cancer, s/p hysterectomy with salpingo-oophorectomy, who presented to the ER with abdominal pain. She was at [facility] but was discharged from the ER with PO Morphine and Zofran. She went home, still did not feel well so came to our ER for further evaluation. Labs reviewed from the patients phone from [facility] 12/08/20 which showed, WBC elevated at 11,000, neutrophils 88%, Normal renal function and electrolyes, normal urinarlysis. CT Abd/Pelvis w/contrast showed prox ileum- mid ileum with diffuse wall thickening and mesenteric vessel engorgement and edema suggesting enteritis secondary to underlying minimal nodulation treatment for cancer. Mild rectosigmoid colitis. Trace ascites. When compared to CT Scan from 10/21/20 iti showed improvement of colitis. The patient had a Colonoscopy by Dr. Santos at [facility] 12/04/20 which showed ulcerations per the patient and she is awaiting biopsy results. Due to continued elevation of WBC, neutrophil count, H&H was elevated showing dehydration she was admitted into the hospital for IV fluids and IV abx for enteritis/colitis with IV Levaquin and Flagyl. She is feeling better, no longer having nausea or vomiting and pain is slightly improving. Continue IV fluids and abx at this time. (2) Colitis: Code(s): K52.9 - Noninfective gastroenteritis and colitis, unspecified Status: Acute Assessment and Plan: See above (3) Abdominal pain: Qualifiers: Abdominal location: generalized Qualified Code(s): R10.84 - Generalized abdominal pain Code(s): R10.9 - Unspecified abdominal pain Status: Acute Assessment and Plan: Believe secondary to above, colitis vs enteritis and urinary retention. (4) Leukocytosis: Qualifiers: Leukocytosis type: unspecified Qualified Code(s): D72.829 - Elevated white blood cell count, unspecified Code(s): D72.829 - Elevated white blood cell count, unspecified Status: Acute Assessment and Plan: Increasing leukocytosis today, believe due to urinary retention and pain. Lactic acid normal. Vitals stable 120/81, nontachcyardic, normal O2 on room air. UA showing no UTI Continue monitoring while on Abx. (5) Ovarian cancer on right: Code(s): C56.1 - Malignant neoplasm of right ovary Status: Acute Assessment and Plan: Status post hysterectomy and and salpingo-oophorectomy Has undergone chemotherapy Will follow-up in outpatient setting (6) ROLANDO (acute kidney injury): Code(s): N17.9 - Acute kidney failure, unspecified Status: Acute Assessment and Plan: Patient's renal function went from normal at 0.9-1.3 overnight. She has not urinated all day and she was found to have urinary retention of greater than 600 cc. She tried to urinate on the commode but was unable to. We placed a Carter catheter at this time. UA showing elevated specific gravity, hyaline casts could be from vomiting or due to her ROLANDO. Renal ultrasound to be completed for further evaluation. Repeat labs in the morning Continue monitoring urine output with IV fluid hydration (7) Urinary retention: Code(s): R33.9 - Retention of urine, unspecified Status: Acute Assessment and Plan: Patient found have urinary retention. A Carter catheter was placed and greater than
--- NOTE | 2020-12-09 13:39 | PCAUD ---
Port a catheter accessed via IV therapy Brenna this shift, labs collected via nurse and send to lab. Ua with C&S collected bladder scan >700 ml, barrios 16 f inserted post void 650ml. Pt tolerated well. UA send to lab for analysis.
[2020-12-09 13:56] LABS: Add Urine Microscopic? YES; Appearance Urine Clear (Clear); Bacteria Urine Trace /hpf; Bilirubin Urine Negative (Negative); Blood Urine Negative (Negative); Color Urine Yellow (Yellow); Glucose Urine UA Negative (Negative); Hyaline Casts Urine 20-29 /lpf; Ketones Urine Trace mg/dL (Negative); Leukocyte Esterase Ur Negative LEU/UL (Negative); Mucus Urine Rare /lpf; Nitrate Urine Negative (Negative); Protein Urine 1+ mg/dL (Negative); Squamous Epithelial Cell Urine Rare /hpf (Few); Urobilinogen Urine Negative mg/dL (<2.0); WBC Urine 0-3 /hpf
[2020-12-09 14:04] LABS: Specific Grav Ur 1.036 (1.001-1.035)
--- NOTE | 2020-12-09 14:10 | PC.NURSE ---
Port accessed by Brenna IV therapy RN, labs obtained via port this shift, barrios inserted 16 f r/t urinary retention, UA with C&S collected and send to lab. Awaiting results.
[2020-12-10] MEDS: ONDANSETRON INJ 4 MG/2 ML VIAL IV PUSH ×3 (00:01→17:48)
[2020-12-10] MEDS: MORPHINE SULFATE (*CRX) 4 MG/ML INJ IV PUSH ×2 (00:01→17:48)
[2020-12-10] MEDS: ZOLPIDEM TARTRATE (*CRX) 5 MG TABLET 10 MG PO ×2 (00:33→21:55)
[2020-12-10] MEDS: metroNIDAZOLE 500 MG/ISO 100ML 500 MG/100 ML BAG 100 MG IVPB ×3 (05:23→18:18)
[2020-12-10] MEDS: CENTRAL LINE FLUSH 10 ML IV PUSH ×3 (05:26→22:06)
--- NOTE | 2020-12-10 05:42 | PC.NURSE ---
unable to successfully draw AM labs from accessed port, will contact phlebotomy. Appropriate flushes done to port.
[2020-12-10 05:46] VITALS: BP 112/76; PULSE 94; RESP 18; TEMP 36.8; O2SAT 94
[2020-12-10 08:00] VITALS: PULSE 94; RESP 18; O2SAT 94
[2020-12-10 08:38] LABS: Hematocrit 43.7 % (37.0-47.0); Hemoglobin 14.3 g/dL (12.0-15.0); Mean Corpuscular HGB Conc 32.7 g/dl (32-36); Mean Corpuscular Hemoglobin 32.6 pg (26-34); Mean Corpuscular Volume 99.5 fl (80-100); Mean Platelet Volume 9.7 fl (7.4-10.4); Platelet Count Result 301 k/mm3 (150-375); Red Blood Count 4.39 M/mm3 (4.2-5.4); Red Cell Distribution Width 16.2 % (11.5-14.5); White Blood Count 22.6 K/mm3 (4.5-10.0)
[2020-12-10 09:15] LABS: Alanine Aminotransferase 16 U/L (4-35); Albumin Level 3.1 g/dL (3.5-5.1); Alkaline Phosphatase 66 U/L (38-126); Anion Gap 11 mmol/L (8-16); Aspartate Amino Transferase 24 U/L (14-36); Bilirubin,Total 0.3 mg/dL (0.2-1.3); Blood Urea Nitrogen 58 mg/dL (7-17); CRP 26.4 mg/dL (<1.0); Calcium 7.3 mg/dL (8.4-10.2); Carbon Dioxide 20 mmol/L (22-30); Chloride 99 mmol/L (98-107); Estimated CRCL calculation 9 ml/min; Estimated Glomerular Filt Rate 17; Glucose 117 mg/dL (65-110); Magnesium 1.7 mg/dL (1.6-2.3); Potassium 5.3 mmol/L (3.4-5.0); Sodium 130 mmol/L (137-145)
[2020-12-10 09:32] VITALS: O2SAT 94
[2020-12-10] MEDS: TAMSULOSIN HCL 0.4 MG CAPSULE PO (09:58)
[2020-12-10] MEDS: PANTOPRAZOLE SODIUM IV 40 MG VIAL IV PUSH ×2 (09:58→21:46)
[2020-12-10 10:37] LABS: Band Neutrophils Percent 16 % (0-6); Monocytes Absolute Manual 2.71 K/mm3 (0.1-0.90); Monocytes Percent Manual 12 % (3-9); Neutrophils Absolute Manual 18.98 K/mm3 (1.7-7.2); Neutrophils Percent Manual 68 % (46-73); Total Cells Counted 100
[2020-12-10 10:38] LABS: Platelet Estimate Adequate (Adequate)
[2020-12-10 12:41] VITALS: PULSE 100
[2020-12-10] MEDS: DULoxetine HCL 60 MG CAPSULE.DR PO (12:41)
[2020-12-10] MEDS: ATORVASTATIN 10 MG TABLET PO (12:41)
[2020-12-10] MEDS: METOPROLOL SUCCINATE EXT REL 25 MG TABCR PO (12:41)
[2020-12-10] MEDS: SODIUM CHLORIDE 0.9% IV 1,000 ML 80 ML IV CONT (12:52)
[2020-12-10 14:00] VITALS: BP 145/85; PULSE 92; RESP 14; TEMP 36.4; O2SAT 99
--- NOTE | 2020-12-10 15:56 | P.PNIM_ITS ---
Progress Note: A&P Assessment and Plan (1) Enteritis: Code(s): K52.9 - Noninfective gastroenteritis and colitis, unspecified Status: Acute Assessment and Plan: * She was at [facility] but was discharged from the ER with PO Morphine and Zofran. * Labs reviewed from the patients phone from [facility] 12/08/20 which showed, WBC elevated at 11,000, neutrophils 88%, Normal renal function and electrolyes, normal urinarlysis. * CT Abd/Pelvis w/contrast at [place] showed prox ileum- mid ileum with diffuse wall thickening and mesenteric vessel engorgement and edema suggesting enteritis secondary to underlying minimal nodulation treatment for cancer. Mild rectosigmoid colitis. Trace ascites. * Compared to CT Scan from 10/21/20 it showed improvement of colitis. * Colonoscopy by Dr. Santos at [facility] 12/04/20 which showed ulcerations per the patient * awaiting biopsy results. * Initial labs indicated dehydration fluids were started at that time * Fluids discontinued 12/10/2020 for worsening renal failure * IV antibiotics Levaquin and Flagyl * She is feeling better, no longer having nausea or vomiting and pain is slightly improving. * With elevated white count will rescanned patient (2) Colitis: Code(s): K52.9 - Noninfective gastroenteritis and colitis, unspecified Status: Acute Assessment and Plan: * See above (3) ROLANDO (acute kidney injury): Code(s): N17.9 - Acute kidney failure, unspecified Status: Acute Assessment and Plan: * renal function worse and up to 2.8. * UA showing elevated specific gravity, hyaline casts could be from vomiting or due to her ROLANDO. * Renal ultrasound: Unremarkable renal ultrasound. No stones, masses or hydronephrosis, ascites * Trend labs * Strict I&Os * Fluids were stopped today * Patient is not dehydrated with edema. * UA did not show an infectious source * Could be related to recent CT with contrast at [place] * Nephrology consult (4) Urinary retention: Code(s): R33.9 - Retention of urine, unspecified Status: Acute Assessment and Plan: * Patient found have urinary retention. * Carter catheter was placed 12/09/2020 * tamsulosin daily. * Will need voiding trial prior to discharge. * Strict I&Os (5) Abdominal pain: Qualifiers: Abdominal location: generalized Qualified Code(s): R10.84 - Generalized abdominal pain Code(s): R10.9 - Unspecified abdominal pain Status: Acute Assessment and Plan: * Believe secondary to above, colitis vs enteritis and urinary retention. * No pain reported today (6) Leukocytosis: Qualifiers: Leukocytosis type: unspecified Qualified Code(s): D72.829 - Elevated white blood cell count, unspecified Code(s): D72.829 - Elevated white blood cell count, unspecified Status: Acute Assessment and Plan: * WBC is 22.6 today * Increasing leukocytosis today * Repeat abd CT * IV antibiotics * Lactic acid normal. * Vitals stable 120/81, nontachcyardic, normal O2 on room air. * UA showing no UTI * Continue monitoring while on Abx. (7) Ovarian cancer on right: Code(s): C56.1 - Malignant neoplasm of right ovary Status: Acute Assessment and Plan: * Status post hysterectomy and salpingo-oophorectomy * Last chemo was 09/16/20 * Will follow-up in outpatient setting
--- NOTE | 2020-12-10 15:56 | PM.IMPN ---
Progress Note: A&P Assessment and Plan (1) Enteritis: Code(s): K52.9 - Noninfective gastroenteritis and colitis, unspecified Status: Acute Assessment and Plan: She was at [facility] but was discharged from the ER with PO Morphine and Zofran. Labs reviewed from the patients phone from [facility] 12/08/20 which showed, WBC elevated at 11,000, neutrophils 88%, Normal renal function and electrolyes, normal urinarlysis. CT Abd/Pelvis w/contrast at [place] showed prox ileum- mid ileum with diffuse wall thickening and mesenteric vessel engorgement and edema suggesting enteritis secondary to underlying minimal nodulation treatment for cancer. Mild rectosigmoid colitis. Trace ascites. Compared to CT Scan from 10/21/20 it showed improvement of colitis. Colonoscopy by Dr. Santos at [facility] 12/04/20 which showed ulcerations per the patient awaiting biopsy results. Initial labs indicated dehydration fluids were started at that time Fluids discontinued 12/10/2020 for worsening renal failure IV antibiotics Levaquin and Flagyl She is feeling better, no longer having nausea or vomiting and pain is slightly improving. With elevated white count will rescanned patient (2) Colitis: Code(s): K52.9 - Noninfective gastroenteritis and colitis, unspecified Status: Acute Assessment and Plan: See above (3) ROLANDO (acute kidney injury): Code(s): N17.9 - Acute kidney failure, unspecified Status: Acute Assessment and Plan: renal function worse and up to 2.8. UA showing elevated specific gravity, hyaline casts could be from vomiting or due to her ROLANDO. Renal ultrasound: Unremarkable renal ultrasound. No stones, masses or hydronephrosis, ascites Trend labs Strict I&Os Fluids were stopped today Patient is not dehydrated with edema. UA did not show an infectious source Could be related to recent CT with contrast at [facility] Nephrology consult (4) Urinary retention: Code(s): R33.9 - Retention of urine, unspecified Status: Acute Assessment and Plan: Patient found have urinary retention. Carter catheter was placed 12/09/2020 tamsulosin daily. Will need voiding trial prior to discharge. Strict I&Os (5) Abdominal pain: Qualifiers: Abdominal location: generalized Qualified Code(s): R10.84 - Generalized abdominal pain Code(s): R10.9 - Unspecified abdominal pain Status: Acute Assessment and Plan: Believe secondary to above, colitis vs enteritis and urinary retention. No pain reported today (6) Leukocytosis: Qualifiers: Leukocytosis type: unspecified Qualified Code(s): D72.829 - Elevated white blood cell count, unspecified Code(s): D72.829 - Elevated white blood cell count, unspecified Status: Acute Assessment and Plan: WBC is 22.6 today Increasing leukocytosis today Repeat abd CT IV antibiotics Lactic acid normal. Vitals stable 120/81, nontachcyardic, normal O2 on room air. UA showing no UTI Continue monitoring while on Abx. (7) Ovarian cancer on right: Code(s): C56.1 - Malignant neoplasm of right ovary Status: Acute Assessment and Plan: Status post hysterectomy and salpingo-oophorectomy Last chemo was 09/16/20 Will follow-up in outpatient setting (8) Hypertension: Code(s): I10 - Essential (primary) hypertension Status: Acute Assessment and Plan: Current blood pressure 145/85 Continue home metoprolol Trend blood pressure Adjust medications as need Time Spent With Patient Time with patient: Greater than 35 minutes Subjective Date/time seen: 12/10/20 13:00 Interval history: Patient is a 60-year-old female who is here for abdominal pain. Patient states she feels a little better today.
[2020-12-10 18:54] LABS: NT Pro B Type Natriuretic Pept 106 pg/mL (5-100)
[2020-12-10 21:55] VITALS: BP 140/76; PULSE 98; RESP 18; TEMP 36.5; O2SAT 97
[2020-12-11] VITALS (10 sets, daily range): BP systolic 106–143; BP diastolic 46–81; PULSE 76–94; RESP 14–22; TEMP 36.1–36.8; O2SAT 94–98
[2020-12-11] MEDS: metroNIDAZOLE 500 MG/ISO 100ML 500 MG/100 ML BAG 100 MG IVPB ×3 (00:40→14:10)
[2020-12-11 04:57] LABS: Hematocrit 31.7 % (37.0-47.0); Hemoglobin 10.4 g/dL (12.0-15.0); Mean Corpuscular HGB Conc 32.8 g/dl (32-36); Mean Corpuscular Volume 97.5 fl (80-100); Mean Platelet Volume 9.2 fl (7.4-10.4); Platelet Count Result 182 k/mm3 (150-375); Red Blood Count 3.25 M/mm3 (4.2-5.4); Red Cell Distribution Width 15.9 % (11.5-14.5); White Blood Count 17.3 K/mm3 (4.5-10.0)
[2020-12-11 05:08] LABS: Alanine Aminotransferase 14 U/L (4-35); Albumin Level 2.8 g/dL (3.5-5.1); Alkaline Phosphatase 60 U/L (38-126); Anion Gap 6 mmol/L (8-16); Aspartate Amino Transferase 21 U/L (14-36); Bilirubin,Total 0.1 mg/dL (0.2-1.3); Blood Urea Nitrogen 53 mg/dL (7-17); Calcium 7.5 mg/dL (8.4-10.2); Carbon Dioxide 24 mmol/L (22-30); Chloride 99 mmol/L (98-107); Estimated CRCL calculation 16 ml/min; Estimated Glomerular Filt Rate 33; Glucose 97 mg/dL (65-110); Magnesium 1.7 mg/dL (1.6-2.3); Potassium 4.5 mmol/L (3.4-5.0); Sodium 129 mmol/L (137-145)
[2020-12-11] MEDS: CENTRAL LINE FLUSH 10 ML IV PUSH ×3 (05:14→21:57)
[2020-12-11 05:30] LABS: Band Neutrophils Percent 10 % (0-6); Lymphocytes Absolute Manual 0.86 K/mm3 (1.1-4.5); Monocytes Absolute Manual 1.38 K/mm3 (0.1-0.90); Monocytes Percent Manual 8 % (3-9); Neutrophils Absolute Manual 15.05 K/mm3 (1.7-7.2); Neutrophils Percent Manual 77 % (46-73); Total Cells Counted 100
[2020-12-11 05:31] LABS: Platelet Estimate Adequate (Adequate)
--- NOTE | 2020-12-11 08:07 | PM.CNNEP ---
Assessment and Plan Assessment and plan (1) ROLANDO (acute kidney injury): Code(s): N17.9 - Acute kidney failure, unspecified Status: Acute Assessment and Plan: The patient has acute kidney injury. This is on top of normal kidney function. She had a renal ultrasound which showed no obstruction. Urinalysis showed a very high specific gravity of 1.036. Most likely this is from a combination of contrast exposure, urinary retention, and dehydration. Other than the contrast it does not look like she was on any medications that would bother the kidneys. There other causes of kidney disease as well including rhabdomyolysis. We will check a CK. Glomerulonephritis would be unlikely in this clinical scenario. Interstitial nephritis would be unlikely this early after starting antibiotics. Vascular disease is always a possibility as well however she is young and female so is at fairly low risk of this. In addition the patient did not have blood in the urine or elevated liver enzymes. Will check urine electrolytes. Creatinine is getting better so we can keep an eye on this. (2) Urinary retention: Code(s): R33.9 - Retention of urine, unspecified Status: Acute Assessment and Plan: The patient had urinary retention and so has a Carter catheter in. (3) Hyponatremia: Code(s): E87.1 - Hypo-osmolality and hyponatremia Status: Acute Assessment and Plan: The patient has low sodium. This has dropped during the hospital stay. This is probably multifactorial as well. She says she has been drinking a lot of fluid. So there is probably a dilutional component. In addition she was dehydrated when she came in and in this setting free water excretion is hampered. The patient does have ovarian cancer so could make her at risk for low sodium. The patient is on duloxetine at home. She has been on this for a year and her sodium is not been low at [facility] that we know of. So I do not think this is the only cause but it is probably responsible for some of the free water excretory defect in this setting. At this point since her renal function is improving I think the sodium will probably get itself better. I will just place the patient on a fluid restriction. Other causes of hyponatremia include endocrine causes. We will check a TSH and cortisol level. Cancer can do this, and of course she has ovarian cancer. Pulmonary issues and SYSTEMS ENG issues can do this. She does not have any signs or symptoms of these. We can look more at these issues if her sodium is difficult to correct. (4) Hypertension: Code(s): I10 - Essential (primary) hypertension Status: Acute Assessment and Plan: This is a new issue for the patient, having only acquired this while getting chemotherapy. Her blood pressure is well controlled right now (5) Abdominal pain: Qualifiers: Abdominal location: generalized Qualified Code(s): R10.84 - Generalized abdominal pain Code(s): R10.9 - Unspecified abdominal pain Status: Acute Assessment and Plan: This is improved (6) Ovarian cancer on right: Code(s): C56.1 - Malignant neoplasm of right ovary Status: Acute Assessment and Plan: She is getting treatment at [facility] History of Present Illness Reason for Consult Consult date: 12/11/20 Chief Complaint Chief complaint: Abdominal Pain,Enteritis,Leukocytosis History of Present Illness Narrative: Jennyfer is a very pleasant 60-year-old lady who has multiple medical problems including ovarian cancer status post chemotherapy at [facility] for the last year and she finished her treatment a while back, hypertension since being on chemo, hypothyroidism, depression, migraine headaches, anxiety, hyperlipidemia. The patient had abdominal pain in the pelvic area. She had a couple of days of nausea and vomiting as well. She went to [place] to be evaluated in a said that was just in
[2020-12-11] MEDS: TAMSULOSIN HCL 0.4 MG CAPSULE PO (08:11)
[2020-12-11] MEDS: ATORVASTATIN 10 MG TABLET PO (08:11)
[2020-12-11] MEDS: PANTOPRAZOLE SODIUM IV 40 MG VIAL IV PUSH (08:11)
[2020-12-11] MEDS: DULoxetine HCL 60 MG CAPSULE.DR PO (08:11)
[2020-12-11] MEDS: METOPROLOL SUCCINATE EXT REL 25 MG TABCR PO (08:11)
[2020-12-11 09:20] LABS: Creatine Kinase 102 U/L (30-135)
--- NOTE | 2020-12-11 12:45 | P.PNIM_ITS ---
Progress Note: A&P Assessment and Plan (1) Bowel obstruction: Code(s): K56.609 - Unspecified intestinal obstruction, unspecified as to partial versus complete obstruction Status: Deleted Assessment and Plan: * Repeat CT shows a closed loop small-bowel obstruction * general surgery has been consulted thank you for your recommendations * exploratory lap has been scheduled for this afternoon * trend labs (2) Enteritis: Code(s): K52.9 - Noninfective gastroenteritis and colitis, unspecified Status: Deleted Assessment and Plan: * She was at [facility] but was discharged from the ER with PO Morphine and Zofran. * Labs reviewed from the patients phone from [facility] 12/08/20 which showed, WBC elevated at 11,000, neutrophils 88%, Normal renal function and electrolyes, normal urinarlysis. * CT Abd/Pelvis w/contrast at [facility] showed prox ileum- mid ileum with diffuse wall thickening and mesenteric vessel engorgement and edema suggesting enteritis secondary to underlying minimal nodulation treatment for cancer. Mild rectosigmoid colitis. Trace ascites. * Compared to CT Scan from 10/21/20 it showed improvement of colitis. * Colonoscopy by Dr. Santos at [facility] 12/04/20 which showed ulcerations per the patient * awaiting biopsy results. * Initial labs indicated dehydration fluids were started at that time * Fluids discontinued 12/10/2020 for worsening renal failure * IV antibiotics Levaquin and Flagyl * She is feeling better, no longer having nausea or vomiting and pain is slightly improving. * With elevated white count will rescanned patient * repeat CT showed small bowel obstruction and moderate ascites (3) Colitis: Code(s): K52.9 - Noninfective gastroenteritis and colitis, unspecified Status: Deleted Assessment and Plan: * See above (4) ROLANDO (acute kidney injury): Code(s): N17.9 - Acute kidney failure, unspecified Status: Acute Assessment and Plan: * renal function trending down 1.60 * UA showing elevated specific gravity, hyaline casts could be from vomiting or due to her ROLANDO. * Renal ultrasound: Unremarkable renal ultrasound. No stones, masses or hydronephrosis, ascites * Trend labs * Strict I&Os * Fluids were stopped today * Patient is not dehydrated with edema. * UA did not show an infectious source * Could be related to recent CT with contrast at [facility] * Nephrology consult * check urine electrolytes (5) Urinary retention: Code(s): R33.9 - Retention of urine, unspecified Status: Acute Assessment and Plan: * Patient found have urinary retention. * Carter catheter was placed 12/09/2020 * tamsulosin daily. * Will need voiding trial prior to discharge. * Strict I&Os (6) Abdominal pain: Qualifiers: Abdominal location: generalized Qualified Code(s): R10.84 - Generalized abdominal pain Code(s): R10.9 - Unspecified abdominal pain Status: Deleted Assessment and Plan: * Believe secondary to above, colitis vs enteritis and urinary retention. * No pain reported today (7) Leukocytosis: Qualifiers: Leukocytosis type: unspecified Qualified Code(s): D72.829 - Elevated white blood cell count, unspecified Code(s): D72.829 - Elevated white blood cell count, unspecified Status: Deleted Assessment and Plan: *
--- NOTE | 2020-12-11 12:45 | PM.IMPN ---
Progress Note: A&P Assessment and Plan (1) Bowel obstruction: Code(s): K56.609 - Unspecified intestinal obstruction, unspecified as to partial versus complete obstruction Status: Deleted Assessment and Plan: Repeat CT shows a closed loop small-bowel obstruction general surgery has been consulted thank you for your recommendations exploratory lap has been scheduled for this afternoon trend labs (2) Enteritis: Code(s): K52.9 - Noninfective gastroenteritis and colitis, unspecified Status: Deleted Assessment and Plan: She was at [facility] but was discharged from the ER with PO Morphine and Zofran. Labs reviewed from the patients phone from [facility] 12/08/20 which showed, WBC elevated at 11,000, neutrophils 88%, Normal renal function and electrolyes, normal urinarlysis. CT Abd/Pelvis w/contrast at [facility] showed prox ileum- mid ileum with diffuse wall thickening and mesenteric vessel engorgement and edema suggesting enteritis secondary to underlying minimal nodulation treatment for cancer. Mild rectosigmoid colitis. Trace ascites. Compared to CT Scan from 10/21/20 it showed improvement of colitis. Colonoscopy by Dr. Santos at [facility] 12/04/20 which showed ulcerations per the patient awaiting biopsy results. Initial labs indicated dehydration fluids were started at that time Fluids discontinued 12/10/2020 for worsening renal failure IV antibiotics Levaquin and Flagyl She is feeling better, no longer having nausea or vomiting and pain is slightly improving. With elevated white count will rescanned patient repeat CT showed small bowel obstruction and moderate ascites (3) Colitis: Code(s): K52.9 - Noninfective gastroenteritis and colitis, unspecified Status: Deleted Assessment and Plan: See above (4) ROLANDO (acute kidney injury): Code(s): N17.9 - Acute kidney failure, unspecified Status: Acute Assessment and Plan: renal function trending down 1.60 UA showing elevated specific gravity, hyaline casts could be from vomiting or due to her ROLANDO. Renal ultrasound: Unremarkable renal ultrasound. No stones, masses or hydronephrosis, ascites Trend labs Strict I&Os Fluids were stopped today Patient is not dehydrated with edema. UA did not show an infectious source Could be related to recent CT with contrast at [facility] Nephrology consult check urine electrolytes (5) Urinary retention: Code(s): R33.9 - Retention of urine, unspecified Status: Acute Assessment and Plan: Patient found have urinary retention. Carter catheter was placed 12/09/2020 tamsulosin daily. Will need voiding trial prior to discharge. Strict I&Os (6) Abdominal pain: Qualifiers: Abdominal location: generalized Qualified Code(s): R10.84 - Generalized abdominal pain Code(s): R10.9 - Unspecified abdominal pain Status: Deleted Assessment and Plan: Believe secondary to above, colitis vs enteritis and urinary retention. No pain reported today (7) Leukocytosis: Qualifiers: Leukocytosis type: unspecified Qualified Code(s): D72.829 - Elevated white blood cell count, unspecified Code(s): D72.829 - Elevated white blood cell count, unspecified Status: Deleted Assessment and Plan: WBC is 22.6 today Increasing leukocytosis today Repeat abd CT IV antibiotics Lactic acid normal. Vitals stable 120/81, nontachcyardic, normal O2 on room air. UA showing no UTI Continue monitoring while on Abx. (8) Ovarian cancer on right: Code(s): C56.1 - Malignant neoplasm of right ovary Status: Inactive Assessment and Plan: Status post hysterectomy and salpingo-oophorectomy Last chemo was 09/16/20 Will follow-up in outpatient set
--- NOTE | 2020-12-11 13:46 | PM.CNGS ---
Assessment and Plan Assessment and plan (1) Complete small bowel obstruction: Code(s): K56.601 - Complete intestinal obstruction, unspecified as to cause Status: Acute Assessment and Plan: CT and clinically consistent with closed loop small bowel obstruction. This is an urgent/emergent surgical problem due to the risk of bowel ischemia and infarction. We will proceed with exploratory laparotomy emergently today. I discussed the procedure with the patient. While adhesions are the most common cause for this, this also could be due to recurrent ovarian cancer. It may require resection although certainly we will try to simply relieve the obstruction. All questions were answered. She understands and agrees to go ahead. (2) Abdominal ascites: Qualifiers: Ascites type: other type Qualified Code(s): R18.8 - Other ascites Code(s): R18.8 - Other ascites Status: Acute Assessment and Plan: Worrisome for recurrent ovarian cancer although could be due to the small bowel obstruction even if it was from benign disease. (3) ROLANDO (acute kidney injury): Code(s): N17.9 - Acute kidney failure, unspecified Status: Acute Assessment and Plan: Improving, nephrology following. (4) Hyponatremia: Code(s): E87.1 - Hypo-osmolality and hyponatremia Status: Acute Assessment and Plan: Being monitored. History of Present Illness Consult details Consult date: 12/11/20 Reason for consult: abdominal pain (Closed loop small-bowel obstruction) Requesting physician: Tucker Blanco APN-C Narrative: Patient is a 60-year-old woman who was diagnosed early this year with right ovarian cancer. She tells me that it was stage III. She underwent hysterectomy with oophorectomy and staging laparotomy May 05, 2020. Following recovery from this surgery she underwent several cycles of chemotherapy. This was all done at [facility]. Her gynecologic oncologist is . She had done well until 4 days ago when she began experiencing severe mid abdominal pain associated with vomiting. Two days prior to the onset of these symptoms she had a colonoscopy at [facility] which showed some colonic ulceration. She went to the emergency room at [facility] 4 days ago, when her symptoms started, and a CT scan there suggested enterocolitis. She was discharged with antibiotics and analgesics. Her pain was persistent and possibly worse. She came to the emergency room at [facility] 3 days ago, 12/08/2020. She was noted to have a white blood cell count of 16,600. She was tachycardic but otherwise no abnormal vital signs. She was started on Levaquin and metronidazole and admitted. She has continued to have abdominal pain which is in fact getting worse. She had been receiving oral intake until today. Repeat CT scan today of the chest abdomen pelvis show multiple dilated loops of small bowel and evidence of a closed loop small-bowel obstruction. No evidence of recurrent ovarian cancer was noted on the CT scan. I was asked to see the patient urgently regarding her closed loop small-bowel obstruction. Her white blood cell count increased to a high of 22,600 yesterday. It has decreased to 17,300 today. She also is being seen by Nephrology for acute kidney injury and hyponatremia. Her creatinine was normal on admission but increased to 2.8. It has decreased again now to 1.6. Her sodium remains low and today is 129. Review of Systems Review of Systems: All systems reviewed & are unremarkable except as noted in HPI and below Constitutional: Constitutional: Denies chills and Denies fever(s) Cardiovascular: Cardiovascular: Denies chest pain, Denies diaphoresis, Denies dyspnea and Denies paroxysmal nocturnal dyspnea Respiratory: Respiratory: Denies chest congestion, Denies cough and Denies dyspnea Gastrointestinal: Gastrointestinal: Reports as per HPI, Reports abdominal pain, Reports constipation,
--- NOTE | 2020-12-11 14:05 | PCPTNOTE ---
Pt off floor for testing/procedure. Will try again at later time/date.
--- NOTE | 2020-12-11 14:14 | WPDANESEPPF ---
Anes - Initial Pre Proc Eval Procedure: Operation Date: 12/11/20 14:30 Proposed Procedures p Exploratory Laparotomy For Small Bowel Obstruction - Ángel Jolley MD Date/Time: 12/11/20 14:14 Surgeon: Summer لاعلي PA-C Pre Op Diagnosis: Abdominal Pain,Enteritis,Leukocytosis Patient Data Age: 60 Gender: F Height: 1.68 m Weight: 28.8 kg Last Vital Signs Temp 36.8 C 12/11/20 05:35 Pulse 76 12/11/20 08:11 Resp 18 12/11/20 05:35 BP 123/58 L 12/11/20 05:35 Pulse Ox 98 12/11/20 05:35 Allergies Allergy/AdvReac Type Severity Reaction Status Date / Time [place] AdvReac Itching Uncoded 12/09/20 04:09 Home Medications Medication Instructions Recorded Confirmed Type atorvastatin 10 mg PO DAILY 10/18/19 12/09/20 History duloxetine 60 mg PO DAILY 10/18/19 12/09/20 History multivitamin 1 tablet PO DAILY 10/18/19 12/09/20 History sumatriptan succinate 100 mg PO DAILY PRN 10/18/19 12/09/20 History zolpidem 12.5 mg PO HS PRN 10/18/19 12/09/20 History amlodipine 10 mg PO DAILY 12/09/20 12/09/20 History metoprolol succinate 25 mg PO DAILY 12/09/20 12/09/20 History ondansetron HCl 4 mg PO DAILY MDD 4 12/09/20 12/09/20 History Laboratory Tests 12/10/20 12/11/20 12/11/20 18:13 04:44 04:44 WBC 17.3 K/mm3 H K/mm3 (4.5-10.0) RBC 3.25 M/mm3 L M/mm3 (4.2-5.4) Hgb 10.4 g/dL L D g/dL (12.0-15.0) Hct 31.7 % L % (37.0-47.0) MCV 97.5 fl fl (80-100) MCH 32.0 pg pg (26-34) MCHC 32.8 g/dl g/dl (32-36) RDW 15.9 % H % (11.5-14.5) Plt Count 182 k/mm3 k/mm3 (150-375) MPV 9.2 fl fl (7.4-10.4) Immature Gran % (Auto) Not Reportable Neut % (Auto) Not Reportable Lymph % (Auto) Not Reportable [place] % (Auto) Not Reportable Eos % (Auto) Not Reportable Baso % (Auto) Not Reportable Lymph # (Auto) Not Reportable [place] # (Auto) Not Reportable Eos # (Auto) Not Reportable Baso # (Auto) Not Reportable Abs Immat Gran (auto) Not Reportable Absolute Neuts (auto) Not Reportable Absolute Nucleated RBC Not Reportable Total Counted 100 Neutrophils % (Manual) 77 % H % (46-73) Band Neutrophils % 10 % H % (0-6) Lymphocytes % (Manual) 5.0 % L % (18-44) Monocytes % (Manual) 8 % % (3-9) Nucleated RBC % Not Reportable Abs Neuts (Manual) 15.05 K/mm3 H K/mm3 (1.7-7.2) Abs Lymphs (Manual) 0.86 K/mm3 L K/mm3 (1.1-4.5) Abs Monocytes (Manual) 1.38 K/mm3 H K/mm3 (0.1-0.90) Platelet Estimate Adequate (Adequate) Sodium 129 mmol/L L mmol/L (137-145) Potassium 4.5 mmol/L mmol/L (3.4-5.0) Chloride 99 mmol/L mmol/L (98-107) Carbon Dioxide 24 mmol/L mmol/L (22-30) Anion Gap 6 mmol/L L mmol/L (8-16) BUN 53 mg/dL H mg/dL (7-17) Creatinine 1.60 mg/dL H mg/dL (0.7-1.0) Estim Creat Clear Calc 16 ml/min ml/min Estimated GFR 33 L (59 - ) Glucose 97 mg/dL mg/dL (65-110) Calcium 7.5 mg/dL L mg/dL (8.4-10.2) Magnesium 1.7 mg/dL mg/dL (1.6-2.3) Total Bilirubin 0.1 mg/dL L mg/dL (0.2-1.3) AST 21 U/L U/L (14-36) ALT 14 U/L U/L (4-35) Alkaline Phosphatase 60 U/L U/L (38-126) Total Creatine Kinase NT-Pro-B Natriuret Pep 106 pg/mL H pg/mL (5-100) Total Protein 5.0 g/dL L g/dL (6.3-8.2) Albumin 2.8 g/dL L g/dL (3.5-5.1) TSH (Reflex) Free T4 Random Cortisol 12/11/20 12/11/20 12/11/20 04:44 04:44 04:44 WBC RBC Hgb Hct MCV MCH MCHC
--- NOTE | 2020-12-11 14:19 | WPDHPUPDATE1 ---
History and Physical Update Update Date/Time: 12/11/20 14:19 History and Physical has been reviewed, including an updated exam of the patient. There are NO changes in the patient's condition. Risks, benefits, and alternatives have been discussed and questions answered. Patient agrees to proceed with procedure.
[2020-12-11] MEDS: LACTATED RINGERS 1,000 ML 30 ML IV CONT (14:24)
--- NOTE | 2020-12-11 14:25 | PCOTNOTE ---
Attempted to see patient this pm, however patient off floor at this time for surgery.
[2020-12-11] MEDS: ceFAZolin 2 GM/D5W 50 ML 2 GM/50 ML BAG IVPB (14:36)
[2020-12-11] MEDS: SOD HYALURONATE/CARBOXYMETHYLCELLULOSE 5X6 3 EACH TOPICAL (16:00)
--- NOTE | 2020-12-11 16:44 | PC.NURSE ---
This nurse received a phone call today from [facility] research facility Dr. Katty Hutson office, inquiring about the patient. Dr. Mckinney is the head of the research department and also has been administering the patients Chemotherapy medications so they know the patient very well. Per the research or assistant Liset it is crucial for the staff to know that the patient has been receiving Avastin chemotherapy which severely impairs wound healing propers for the patient. The patient has been receiving this medication and Keytruda since June with the last dose being October. The research or assistant was very concerned about the patients labwork that was reported today, with the impaired kidney function etc. The Bead Tr[employer] states that the patient is apart of a research trial and they will need to check in on the patient daily to record the hospitalization stay and the records since we are not apart of [employer]. The research or assistant was wondering if we had run a CA 125 to screen for ovarian cancer recurrence, this nurse informed the or assistant that we had not since it is a specified test that we had no indication to run. This nurse updated the research or assistant about the patient being in surgery along with her continued hospitalization with us. Liset from [facility] states that she will be calling to check in on the patient and make contact with the physician in charge of her case. Dr. Katty Mckinney at [facility] [phone].
--- NOTE | 2020-12-11 16:50 | W.PM.PROC2 ---
Procedure Note - Detailed Date of Procedure 12/11/20 Pre-op Diagnosis Small bowel obstruction Post-op Diagnosis other (Small bowel obstruction with bowel infarction) Procedure Performed Small-bowel resection with anastomosis Surgeon Ángel Jolley MD Electronics Processing Supervisor Chata Alejo [facility] Anesthesia general Indications Patient is a 60-year-old woman who has a history of ovarian cancer and had TAYLER BSO with omentectomy and staging laparotomy in April at [facility]. She completed chemotherapy in August. She began having mid abdominal pain with nausea and vomiting 4 days ago. She came to the emergency room. Initially it was thought she had enterocolitis but CT scan today showed closed loop small-bowel obstruction. She is taken to surgery now emergently for small bowel obstruction Findings She did have a closed loop obstruction due to adhesions. There was no recurrent cancer in the abdomen that I could find at all. About 100 cm of bowel was gangrenous and had to be resected. Small bowel anastomosis was performed after resection. Nearly 3 L of ascites was found in the abdominal cavity. Description of Procedure The patient was taken to surgery and induced into general anesthesia. The abdomen is prepped and draped. The midportion of the previous xiphoid to pubis scar was excised. This skin of the scar was discarded. Dissection was then carried down to the abdominal midline. The fascia was divided in the midline. We carefully opened the peritoneal cavity. We were greeted with abundant ascites. By the conclusion of the surgery, 2800 cc of ascites had been suction from the abdominal cavity. Once the ascites had been suctioned away, we opened the abdomen the length of the wound. It was immediately obvious that there was intestinal infarction present. The bowel was black and with significant mesenteric involvement. The loops of bowel were gently mobilized from inflammatory adhesions and most of the infarcted bowel was able to be eviscerated. Some adhesions were taken down sharply. We then proceeded with additional adhesiolysis so that the infarcted loops of bowel were easily seen. There was an encircling adhesion that was the cause of the obstruction. This was divided and the obstruction was relieved. The injury to the most proximal and distal ends of the bowel was easily seen. Further adhesiolysis was carried out. Even allowing some time it was clear that the involved bowel was not going to revascularize and be satisfactory. I divided the 2 ends of healthy bowel using 2 different loads of a TLC 75 stapler. The involved mesentery was divided using the LigaSure. Bleeding was nil. Cautery was used to achieve hemostasis of the bowel ends and the mesenteric edges. The infarcted bowel was measured and was approximately 100 cm. There was much more small intestine in the abdomen and short bowel syndrome should not at all be a problem. I quarantined off the 2 ends of bowel. Noncrushing bowel clamps were used to avoid significant enteric contamination during the anastomosis. A [id number] but functional end-to-end anastomosis with the TLC 75 stapler was then performed. The enteroenterostomy was then closed with an LS 60 stapler. Again the bowel ends were cauterized for good hemostasis. The mesenteric defect was closed with 4 0 silk suture. All the bowel appeared well vascularized and no abnormalities associated with the staple lines were appreciated. From there I explored the rest of the abdomen and found no sign of any cancer. I milked small intestinal content back up into the stomach and it was evacuated from the stomach with the nasogastric tube. I then placed the bowel back in its general anatomic position. The omentum had been removed at the staging laparotomy. All looked good. I used 3 pieces of Seprafilm which were placed over the bowel and under the wound closure to avoid adhesions. We then closed the midline fascia with bidirectional running 1. PD
[2020-12-11] MEDS: KCL 20 MEQ/D5/0.9% SOD CHL 1,000 ML 125 ML IV CONT (18:40)
[2020-12-11] MEDS: MORPHINE SULFATE PCA (*CRX) 30 MG/30 ML SYR IV CONT (19:00)
[2020-12-11] MEDS: ENOXAPARIN 30 MG/0.3 ML SYRINGE SUB-Q (21:56)
[2020-12-11] MEDS: FAMOTIDINE 20 MG/2 ML VIAL IV PUSH (21:56)
[2020-12-11 22:31] LABS: Free T4 Free Thyroxine Reflex 1.22 ng/dL (0.78-2.19)
[2020-12-11 23:10] LABS: Total Protein Urine Random 33 mg/dL; Ur Ttl Prot Creatinine Ratio 0.57 mg/mg (0-0.20)
[2020-12-11 23:50] LABS: Sodium Urine Random 22 meq/L
[2020-12-12] VITALS (7 sets, daily range): BP systolic 126–151; BP diastolic 68–82; PULSE 81–92; RESP 18–20; TEMP 36.3–36.7; O2SAT 94–98
[2020-12-12 01:15] LABS: Total Triiodothyronine (T3) 0.54 NG/ML (0.97-1.69)
--- NOTE | 2020-12-12 02:06 | PC.NURSE ---
patient has been confused most of the night, will ask repeatedly if mom is here ... she pulled out her NG tube at this time.
--- NOTE | 2020-12-12 02:32 | PC.NURSE ---
reinserted NG tube with [facility] house sup. Taped in place at 65. Educated patient on importance of keeping the tube in place.
[2020-12-12] MEDS: KCL 20 MEQ/D5/0.9% SOD CHL 1,000 ML 125 ML IV CONT (02:57)
[2020-12-12] MEDS: CENTRAL LINE FLUSH 10 ML IV PUSH ×2 (05:37→16:41)
[2020-12-12 05:53] LABS: Basophils Absolute Auto 0.1 K/mm3 (0.0-0.1); Basophils Percent Auto 0.3 % (0.2-1.2); Eosinophils Percent Auto 0.2 % (0-4.4); Hematocrit 29.9 % (37.0-47.0); Hemoglobin 9.8 g/dL (12.0-15.0); Immature Granulocyte Absolute 0.04 K/mm3 (0.00-0.031); Immature Granulocyte Percent A 0.3 % (0-0.5); Lymphocytes Absolute Auto 0.88 K/mm3 (0.9-3.2); Lymphocytes Percent Auto 5.9 % (18.3-44.2); Mean Corpuscular HGB Conc 32.8 g/dl (32-36); Mean Corpuscular Hemoglobin 33.1 pg (26-34); Mean Platelet Volume 9.2 fl (7.4-10.4); Monocytes Absolute Auto 0.8 K/mm3 (0.1-0.6); Monocytes Percent Auto 5.2 % (2.6-8.5); Neutrophils Absolute Auto 13.1 K/mm3 (1.3-6.7); Neutrophils Percent Auto 88.1 % (45.5-73.1); Platelet Count Result 174 k/mm3 (150-375); Red Blood Count 2.96 M/mm3 (4.2-5.4); Red Cell Distribution Width 16.4 % (11.5-14.5); White Blood Count 14.9 K/mm3 (4.5-10.0)
[2020-12-12 06:06] LABS: Alanine Aminotransferase 14 U/L (4-35); Albumin Level 2.6 g/dL (3.5-5.1); Alkaline Phosphatase 64 U/L (38-126); Anion Gap 6 mmol/L (8-16); Aspartate Amino Transferase 27 U/L (14-36); Bilirubin,Total 0.2 mg/dL (0.2-1.3); Blood Urea Nitrogen 21 mg/dL (7-17); Calcium 7.7 mg/dL (8.4-10.2); Carbon Dioxide 25 mmol/L (22-30); Chloride 105 mmol/L (98-107); Estimated CRCL calculation 30 ml/min; Estimated Glomerular Filt Rate > 60; Glucose 130 mg/dL (65-110); Magnesium 2.4 mg/dL (1.6-2.3); Phosphorus 2.3 mg/dL (2.5-4.5); Potassium 4.2 mmol/L (3.4-5.0); Sodium 136 mmol/L (137-145)
--- NOTE | 2020-12-12 07:26 | WPDANESPN ---
Anes - Prog Note Post-Op Date/Time: 12/12/20 07:26 Cardiovascular status: other (Anemia) Respiratory status: normal Airway patency: baseline Mental status: baseline Post-Op hydration status: normal Vital Signs: Last Vital Signs Temp 97.7 F 12/12/20 04:00 Pulse 88 12/12/20 04:00 Resp 20 12/12/20 04:00 BP 126/68 12/12/20 04:00 Pulse Ox 94 12/12/20 04:00 Pain Score (VAS): 03/31 I/O: Intake & Output 12/11/20 12/11/20 12/12/20 15:59 23:59 07:59 Intake Total 081 967 8679 Output Total 130 1750 Balance 220 -30 -650 Laboratory Tests 12/12/20 05:42 12/12/20 05:42 12/11/20 12/11/20 12/11/20 04:44 04:44 04:44 WBC RBC Hgb Hct MCV MCH MCHC RDW Plt Count MPV Immature Gran % (Auto) Neut % (Auto) Lymph % (Auto) [place] % (Auto) Eos % (Auto) Baso % (Auto) Lymph # (Auto) [place] # (Auto) Eos # (Auto) Baso # (Auto) Abs Immat Gran (auto) Absolute Neuts (auto) Absolute Nucleated RBC Nucleated RBC % Sodium Potassium Chloride Carbon Dioxide Anion Gap BUN Creatinine Estim Creat Clear Calc Estimated GFR Glucose Calcium Phosphorus Magnesium Total Bilirubin AST ALT Alkaline Phosphatase Total Creatine Kinase 102 Total Protein Albumin CA 125 Antigen TSH (Reflex) 6.860 H Free T4 1.22 Total T3 Random Cortisol U Random Total Protein Ur Random Sodium Urine Creatinine Protein/Creat Ratio 2 Blood Type Antibody Screen 12/11/20 12/11/20 12/11/20 04:44 10:26 13:45 WBC RBC Hgb Hct MCV MCH MCHC RDW Plt Count MPV Immature Gran % (Auto) Neut % (Auto) Lymph % (Auto) [place] % (Auto) Eos % (Auto) Baso % (Auto) Lymph # (Auto) [place] # (Auto) Eos # (Auto) Baso # (Auto) Abs Immat Gran (auto) Absolute Neuts (auto) Absolute Nucleated RBC Nucleated RBC % Sodium Potassium Chloride Carbon Dioxide Anion Gap BUN Creatinine Estim Creat Clear Calc Estimated GFR Glucose Calcium Phosphorus Magnesium Total Bilirubin AST ALT Alkaline Phosphatase Total Creatine Kinase Total Protein Albumin CA 125 Antigen TSH (Reflex) Free T4 Total T3 0.54 L Random Cortisol 36.20 U Random Total Protein Ur Random Sodium Urine Creatinine Protein/Creat Ratio 2 Blood Type O Positive Antibody Screen Negative 12/11/20 12/12/20 12/12/20 21:55 05:42 05:42 WBC 14.9 H RBC 2.96 L Hgb 9.8 L Hct 29.9 L MCV 101.0 H MCH 33.1 MCHC 32.8 RDW 16.4 H Plt Count 174 MPV 9.2 Immature Gran % (Auto) 0.3 Neut % (Auto) 88.1 H Lymph % (Auto) 5.9 L [place] % (Auto) 5.2 Eos % (Auto) 0.2 Baso % (Auto) 0.3 Lymph # (Auto) 0.88 L [place] # (Auto) 0.8 H Eos # (Auto) 0.0 Baso # (Auto) 0.1 Abs Immat Gran (auto) 0.04 H Absolute Neuts (auto) 13.1 H Absolute Nucleated RBC 0.0 Nucleated RBC % 0.0 Sodium 136 L Potassium 4.2 Chloride 105 Carbon Dioxide 25 Anion Gap 6 L BUN 21 H D Creatinine 0.80 Estim Creat Clear Calc 30 Estimated GFR > 60 Glucose 130 H Calcium 7.7 L Phosphorus 2.3 L Magnesium 2.4 H Total Bilirubin 0.2 AST 27 ALT 14 Alkaline Phosphatase 64 Total Creatine Kinase Total Protein 5.0 L Albumin 2.6 L CA 125 Antigen TSH (Reflex) Free T4 Total T3 Random Cortisol U Random Total Protein 33 Ur Random Sodium 22 Urine Creatinine 58.0 Protein/Creat Ratio 2 0.57 H Blood Type Antibody Screen 12/12/20 05:42 WBC RBC Hgb Hct MCV MCH MCHC RDW Plt Count MPV Immature Gran % (Auto) Neut % (Auto) Lymph % (Auto) [place] % (Auto) Eos % (Auto) Baso % (Auto) Lymph # (Auto) [place] # (Auto) Eos # (Aut
--- NOTE | 2020-12-12 08:16 | PM.PNNEP ---
Progress Note: A&P Assessment and Plan (1) ROLANDO (acute kidney injury): Code(s): N17.9 - Acute kidney failure, unspecified Status: Acute Assessment and Plan: The patient has acute kidney injury. This is on top of normal kidney function. She had a renal ultrasound which showed no obstruction. Urinalysis showed a very high specific gravity of 1.036. Urine electrolytes non pre renal CK was normal Most likely this is from a combination of contrast exposure, urinary retention, and dehydration. Her creatinine has improved to normal with fluids and time away from the contrast. (2) Urinary retention: Code(s): R33.9 - Retention of urine, unspecified Status: Acute Assessment and Plan: The patient had urinary retention and so has a Carter catheter in. (3) Hyponatremia: Code(s): E87.1 - Hypo-osmolality and hyponatremia Status: Acute Assessment and Plan: The patient has low sodium. This has dropped during the hospital stay. TSH is slightly high. Free T4 was normal Cortisol level is not low Most likely this was due to renal insufficiency and pre renal azotemia. Her sodium level has improved with fluids. (4) Hypertension: Code(s): I10 - Essential (primary) hypertension Status: Acute Assessment and Plan: This is a new issue for the patient, having only acquired this while getting chemotherapy. Her blood pressure is well controlled right now (5) Abdominal pain: Qualifiers: Abdominal location: generalized Qualified Code(s): R10.84 - Generalized abdominal pain Code(s): R10.9 - Unspecified abdominal pain Status: Deleted Assessment and Plan: This is improved (6) Ovarian cancer on right: Code(s): C56.1 - Malignant neoplasm of right ovary Status: Inactive Assessment and Plan: She is getting treatment at [facility] Date/time seen: 12/12/20 08:16 Interval history: Patient is feeling much better today. NG tube still in to suction. She is passing gas She is eager to eat. Review of Systems Cardiovascular: Cardiovascular: Reports no additional cardiovascular complaints Respiratory: Respiratory: Reports no additional respiratory complaints Gastrointestinal: Gastrointestinal: Reports no additional gastrointestinal complaints Genitourinary: Genitourinary: Reports no additional female genitourinary complaints Exam Narrative: WDWN in NAD, resting comfortably in bed with NG tube in. skin no rash head ncat lungs clear bilaterally cor reg no rub abd BS+ nontender and soft ext no edema. Objective Data Vital Signs Vital Signs: Vital Signs - 24 hr 12/11/20 14:13 12/11/20 16:20 12/11/20 16:30 Temperature 36.8 C 36.1 C L Pulse Rate 91 80 86 Respiratory Rate 14 14 20 Blood Pressure 136/67 106/46 L 124/81 Pulse Oximetry 98 98 98 12/11/20 16:45 12/11/20 17:00 12/11/20 17:15 Temperature Pulse Rate 85 84 87 Respiratory Rate 20 19 22 H Blood Pressure 118/75 143/72 H 141/75 H Pulse Oximetry 95 95 94 12/11/20 19:00 12/11/20 20:00 12/12/20 00:00 Temperature 36.4 C 36.3 C L Pulse Rate 87 92 Respiratory Rate 18 20 20 Blood Pressure 121/57 L 128/69 Pulse Oximetry 97 97 12/12/20 04:00 Temperature 36.5 C Pulse Rate 88 Respiratory Rate 20 Blood Pressure 126/68 Pulse Oximetry 94 Intake/Output Intake/Output: Intake & Output 12/09/20 12/10/20 12/11/20 12/12/20 23:59 23:59 23:59 23:59 Intake Total 3500 2718 1070 1100 Output Total 1140 147 430 3985 Balance 2360 2168 240 -650 Meds/Results Medications: Active Medications Generic Name Dose Route Start Last Admin Trade Name Freq PRN Reason Stop Dose Admin Enoxaparin Sodium 30 mg 12/11/20 21:00 12/11/20 21:56 Enoxaparin 30 Mg/0.3 Ml Syringe SUB-Q 30 mg Q24H BELINDA Administration Famotidine 20 mg 12/11/20 21:00 12/11/20 21:56 Famotidine 20 Mg/2 Ml Vial IV PUSH 20 mg Q12HR BELINDA Adm
[2020-12-12] MEDS: FAMOTIDINE 20 MG/2 ML VIAL IV PUSH ×2 (08:31→22:02)
--- NOTE | 2020-12-12 10:46 | PM.PNGS ---
Progress Note: A&P Assessment and Plan (1) Complete small bowel obstruction: Code(s): K56.601 - Complete intestinal obstruction, unspecified as to cause Status: Acute Assessment and Plan: POD#1 small bowel resection and patient doing well. WBC coming down. Pain well-controlled, continue PRICING INTERN today. Continue NG tube decompression and bowel rest. We expect her to be NPO for a few days. Will start Clinimix/TPN for nutrition and consult the Dietitian. Encouraged getting up to the chair today to start increasing activity as tolerated. Continue indwelling Carter catheter and monitoring I/O. Pathology pending. Repeat labs tomorrow. (2) Abdominal ascites: Qualifiers: Ascites type: other type Qualified Code(s): R18.8 - Other ascites Code(s): R18.8 - Other ascites Status: Acute Assessment and Plan: No evidence of recurrent cancer intraoperatively. (3) ROLANDO (acute kidney injury): Code(s): N17.9 - Acute kidney failure, unspecified Status: Acute Assessment and Plan: Continues to improve, creatinine 0.8 today, nephrology following. (4) Hyponatremia: Code(s): E87.1 - Hypo-osmolality and hyponatremia Status: Acute Assessment and Plan: Improved. NA 136. Monitor labs. Additional Plan I have discussed the plan of care with Dr. Jolley. Subjective Subjective Date/Time Seen: 12/12/20 10:46 Post Op day: 1 (Small bowel resection) Patient reports: feels better, pain is less, flatus, no bowel movement and afebrile Interval history: Patient seen and examined this morning. She is feeling much better than yesterday. Reports she is having incisional discomfort that is mild, but the abdominal pain she was experiencing yesterday has resolved. No nausea or significant bloating. Reports flatus. Review of Systems Review of Systems: All systems reviewed & are unremarkable except as noted in HPI and below Constitutional: Constitutional: Reports as per HPI, Reports no additional constitutional complaints, Denies chills, Denies fever(s) and Denies headache(s) Cardiovascular: Cardiovascular: Reports no additional cardiovascular complaints, Denies chest pain and Denies leg edema Respiratory: Respiratory: Reports no additional respiratory complaints, Denies cough and Denies dyspnea Gastrointestinal: Gastrointestinal: Reports as per HPI and Reports no additional gastrointestinal complaints Neurologic: Reports system reviewed and no additional complaints, except as documented and Denies focal weakness Exam Const: General: comfortable, no acute distress, alert and awake Orientation/consciousness: patient oriented x3 Resp: Effort & Inspection: normal respiratory effort Auscultation: clear to auscultation bilaterally Cardio: Rate: regular rate Rhythm: regular rhythm GI: Inspection: incision (Dressing clean, dry, and intact) and other (mildly distended) GI Palp: Yes Soft to palpation, Yes Tenderness to palpation present (GI) (incisional), No Guarding due to palpation present (GI) and No Rebound tenderness present Auscultation: Hypoactive bowel sounds present Neuro: General: moves all extremities and no focal motor deficits Extrem: General: no clubbing, cyanosis or edema and no calf tenderness Psych: Mental Status: mental status grossly normal Insight: Good insight present (Psych) Judgement: Good judgement present (Psych) Objective Data Vital Signs Vital Signs: Vital Signs - 24 hr 12/11/20 14:13 12/11/20 16:20 12/11/20 16:30 Temperature 98.2 F 96.9 F L Pulse Rate 91 80 86 Respiratory Rate 14 14 20 Blood Pressure 136/67 106/46 L 124/81 Pulse Oximetry 98 98 98 12/11/20 16:45 12/11/20 17:00 12/11/20 17:15 Temperature Pulse Rate 85 84 87 Respiratory Rate 20 19 22 H Blood Pressure 118/75 143/72 H 141/75 H Pulse Oximetry 95 95 94 12/11/20 19:00 12/11/20 20:00 12/12/20 00:00 Temperature 97.6 F 97.4 F L Pulse Rate 87 92 Respiratory Rate 18 20
[2020-12-12] MEDS: KCL 20 MEQ/D5/0.9% SOD CHL 1,000 ML 70 ML IV CONT ×2 (11:44→22:06)
[2020-12-12] MEDS: AMINO ACIDS 5%/D15W/E-LYTES/CA 2,000 ML with MULTIVITAMINS-12 INJ VIAL 1 2.5 ML, MULTIV... 40 ML IV CONT (11:44)
[2020-12-12] MEDS: FAT EMULSIONS IV 20% 250 ML 20.83 ML IVPB (12:16)
[2020-12-12 12:52] LABS: Partial Thromboplastin Time 37.2 SECONDS (22.3-36.8)
[2020-12-12 12:58] LABS: Transferrin 105 mg/dL (206-381)
--- NOTE | 2020-12-12 13:29 | P.PNIM_ITS ---
Progress Note: A&P Assessment and Plan (1) Complete small bowel obstruction: Code(s): K56.601 - Complete intestinal obstruction, unspecified as to cause Status: Acute Assessment and Plan: * Post op day 1 * Repeat CT shows a closed loop small-bowel obstruction * general surgery has been consulted thank you for your recommendations * exploratory lap has been scheduled for this afternoon * Removed about 100cm of infarcted bowel * NG to suction * Continue Carter catheter for now * Midline incision with staple, dressing dry * Surgery to manage * NPO for now * trend labs * Cefazolin x 2 bags given * TPN/lipids started (2) Bowel obstruction: Code(s): K56.609 - Unspecified intestinal obstruction, unspecified as to partial versus complete obstruction Status: Deleted Assessment and Plan: * See above (3) Enteritis: Code(s): K52.9 - Noninfective gastroenteritis and colitis, unspecified Status: Deleted Assessment and Plan: * Seems to be resolved with diagnosis of closed loop bowel obstruction * She was at [facility] but was discharged from the ER with PO Morphine and Zofran. * Labs reviewed from the patients phone from [facility] 12/08/20 which showed, WBC elevated at 11,000, neutrophils 88%, Normal renal function and electrolyes, normal urinarlysis. * CT Abd/Pelvis w/contrast at [place] showed prox ileum- mid ileum with diffuse wall thickening and mesenteric vessel engorgement and edema suggesting enteritis secondary to underlying minimal nodulation treatment for cancer. Mild rectosigmoid colitis. Trace ascites. (12/08/20) * Colonoscopy by Dr. Santos at [facility] 12/04/20 which showed ulcerations per the patient * Initial labs indicated dehydration fluids were started at that time * Fluids discontinued 12/10/2020 for worsening renal failure * IV antibiotics Levaquin and Flagyl, DC'd per surgery * She is feeling better, no longer having nausea or vomiting and pain is slightly improving. * With elevated white count will rescanned patient * repeat CT showed small bowel obstruction and moderate ascites (12/11/20) (4) Colitis: Code(s): K52.9 - Noninfective gastroenteritis and colitis, unspecified Status: Deleted Assessment and Plan: * See above (5) ROLANDO (acute kidney injury): Code(s): N17.9 - Acute kidney failure, unspecified Status: Acute Assessment and Plan: * renal function trending down 0.80 today * UA showing elevated specific gravity, hyaline casts could be from vomiting or due to her ROLANDO. * Renal ultrasound: Unremarkable renal ultrasound. No stones, masses or hydronephrosis, ascites * Trend labs * Strict I&Os * Fluids were stopped today * Patient is not dehydrated with edema. * UA did not show an infectious source * Could be related to recent CT with contrast at [place] * Nephrology consult thank you for recommendation * check urine electrolytes (6) Urinary retention: Code(s): R33.9 - Retention of urine, unspecified Status: Acute Assessment and Plan: * Patient found have urinary retention. * Carter catheter was placed 12/09/2020 * tamsulosin daily. * Will need voiding trial prior to discharge. * Strict I&Os (7) Abdominal pain: Qualifiers: Abdominal location: generalized Qualified Code(s): R10.84 - Generalized abdominal pain
--- NOTE | 2020-12-12 13:29 | PM.IMPN ---
Progress Note: A&P Assessment and Plan (1) Complete small bowel obstruction: Code(s): K56.601 - Complete intestinal obstruction, unspecified as to cause Status: Acute Assessment and Plan: Post op day [address] shows a closed loop small-bowel obstruction general surgery has been consulted thank you for your recommendations exploratory lap has been scheduled for this afternoon Removed about 100cm of infarcted bowel NG to suction Continue Carter catheter for now Midline incision with staple, dressing dry Surgery to manage NPO for now trend labs Cefazolin x 2 bags given TPN/lipids started (2) Bowel obstruction: Code(s): K56.609 - Unspecified intestinal obstruction, unspecified as to partial versus complete obstruction Status: Deleted Assessment and Plan: See above (3) Enteritis: Code(s): K52.9 - Noninfective gastroenteritis and colitis, unspecified Status: Deleted Assessment and Plan: Seems to be resolved with diagnosis of closed loop bowel obstruction She was at [facility] but was discharged from the ER with PO Morphine and Zofran. Labs reviewed from the patients phone from [facility] 12/08/20 which showed, WBC elevated at 11,000, neutrophils 88%, Normal renal function and electrolyes, normal urinarlysis. CT Abd/Pelvis w/contrast at [place] showed prox ileum- mid ileum with diffuse wall thickening and mesenteric vessel engorgement and edema suggesting enteritis secondary to underlying minimal nodulation treatment for cancer. Mild rectosigmoid colitis. Trace ascites. (12/08/20) Colonoscopy by Dr. Santos at [facility] 12/04/20 which showed ulcerations per the patient Initial labs indicated dehydration fluids were started at that time Fluids discontinued 12/10/2020 for worsening renal failure IV antibiotics Levaquin and Flagyl, DC'd per surgery She is feeling better, no longer having nausea or vomiting and pain is slightly improving. With elevated white count will rescanned patient repeat CT showed small bowel obstruction and moderate ascites (12/11/20) (4) Colitis: Code(s): K52.9 - Noninfective gastroenteritis and colitis, unspecified Status: Deleted Assessment and Plan: See above (5) ROLANDO (acute kidney injury): Code(s): N17.9 - Acute kidney failure, unspecified Status: Acute Assessment and Plan: renal function trending down 0.80 today UA showing elevated specific gravity, hyaline casts could be from vomiting or due to her ROLANDO. Renal ultrasound: Unremarkable renal ultrasound. No stones, masses or hydronephrosis, ascites Trend labs Strict I&Os Fluids were stopped today Patient is not dehydrated with edema. UA did not show an infectious source Could be related to recent CT with contrast at [place] Nephrology consult thank you for recommendation check urine electrolytes (6) Urinary retention: Code(s): R33.9 - Retention of urine, unspecified Status: Acute Assessment and Plan: Patient found have urinary retention. Carter catheter was placed 12/09/2020 tamsulosin daily. Will need voiding trial prior to discharge. Strict I&Os (7) Abdominal pain: Qualifiers: Abdominal location: generalized Qualified Code(s): R10.84 - Generalized abdominal pain Code(s): R10.9 - Unspecified abdominal pain Status: Deleted Assessment and Plan: from bowel obstruction Surgical services consulted No pain reported today (8) Leukocytosis: Qualifiers: Leukocytosis type: unspecified Qualified Code(s): D72.829 - Elevated white blood cell count, unspecified Code(s): D72.829 - Elevated white blood cell count, unspecified Status: Deleted Assessment and Plan: WBC is better today 14.9 Bet
--- NOTE | 2020-12-12 22:00 | PC.NURSE ---
Pt denies pain, pt requesting to be unhooked from morphine drip, new orders received from Annette SANTOS.
[2020-12-13] MEDS: ENOXAPARIN 30 MG/0.3 ML SYRINGE SUB-Q ×2 (00:01→21:14)
[2020-12-13 03:27] LABS: Glucose Point of Care 110 mg/dl (65-105)
[2020-12-13 03:58] VITALS: BP 134/71; PULSE 81; RESP 18; TEMP 36.7; O2SAT 98
--- NOTE | 2020-12-13 07:28 | P.PNIM_ITS ---
Progress Note: A&P Assessment and Plan (1) Complete small bowel obstruction: Code(s): K56.601 - Complete intestinal obstruction, unspecified as to cause Status: Acute Assessment and Plan: * Post op day 2 * Repeat CT shows a closed loop small-bowel obstruction * general surgery has been consulted thank you for your recommendations * exploratory lap 12/11/20 * Removed about 100cm of infarcted bowel * NG to suction * Continue Carter catheter for now * Midline incision with staple, dressing dry * Surgery to manage * NPO for now * trend labs * Cefazolin x 2 bags given * TPN/lipids started (2) Bowel obstruction: Code(s): K56.609 - Unspecified intestinal obstruction, unspecified as to partial versus complete obstruction Status: Deleted Assessment and Plan: * See above (3) Enteritis: Code(s): K52.9 - Noninfective gastroenteritis and colitis, unspecified Status: Deleted Assessment and Plan: * Seems to be resolved with diagnosis of closed loop bowel obstruction * She was at [facility] but was discharged from the ER with PO Morphine and Zofran. * Labs reviewed from the patients phone from [facility] 12/08/20 which showed, WBC elevated at 11,000, neutrophils 88%, Normal renal function and electrolytes, normal urinalysis. * CT Abd/Pelvis w/contrast at [place] showed prox ileum- mid ileum with diffuse wall thickening and mesenteric vessel engorgement and edema suggesting enteritis secondary to underlying minimal nodulation treatment for cancer. Mild rectosigmoid colitis. Trace ascites. (12/08/20) * Colonoscopy by Dr. Santos at [facility] 12/04/20 which showed ulcerations per the patient * Initial labs indicated dehydration fluids were started at that time * Fluids discontinued 12/10/2020 for worsening renal failure * IV antibiotics Levaquin and Flagyl, DC'd per surgery * She is feeling better, no longer having nausea or vomiting and pain is slightly improving. * With elevated white count will rescanned patient * repeat CT showed small bowel obstruction and moderate ascites (12/11/20) (4) Colitis: Code(s): K52.9 - Noninfective gastroenteritis and colitis, unspecified Status: Deleted Assessment and Plan: * See above (5) ROLANDO (acute kidney injury): Code(s): N17.9 - Acute kidney failure, unspecified Status: Acute Assessment and Plan: * renal function trending down 13/0.60 * UA showing elevated specific gravity, hyaline casts could be from vomiting or due to her ROLANDO. * Renal ultrasound: Unremarkable renal ultrasound. No stones, masses or hydronephrosis, ascites * Trend labs * Strict I&Os * Fluids were stopped today * Patient is not dehydrated with edema. * UA did not show an infectious source * Could be related to recent CT with contrast at [place] * Nephrology consult thank you for recommendation * check urine electrolytes (6) Urinary retention: Code(s): R33.9 - Retention of urine, unspecified Status: Acute Assessment and Plan: * Patient found have urinary retention. * Carter catheter was placed 12/09/2020 * tamsulosin daily. * Will need voiding trial prior to discharge. * Strict I&Os (7) Abdominal pain: Qualifiers: Abdominal location: generalized Qualified Code(s): R10.84 - Generalized abdominal pain Code(s): R10.9 - Unspecified abdominal pain Status: Deleted Assessment and Plan: * fro
--- NOTE | 2020-12-13 07:28 | PM.IMPN ---
Progress Note: A&P Assessment and Plan (1) Complete small bowel obstruction: Code(s): K56.601 - Complete intestinal obstruction, unspecified as to cause Status: Acute Assessment and Plan: Post op day [address] shows a closed loop small-bowel obstruction general surgery has been consulted thank you for your recommendations exploratory lap 12/11/20 Removed about 100cm of infarcted bowel NG to suction Continue Carter catheter for now Midline incision with staple, dressing dry Surgery to manage NPO for now trend labs Cefazolin x 2 bags given TPN/lipids started (2) Bowel obstruction: Code(s): K56.609 - Unspecified intestinal obstruction, unspecified as to partial versus complete obstruction Status: Deleted Assessment and Plan: See above (3) Enteritis: Code(s): K52.9 - Noninfective gastroenteritis and colitis, unspecified Status: Deleted Assessment and Plan: Seems to be resolved with diagnosis of closed loop bowel obstruction She was at [facility] but was discharged from the ER with PO Morphine and Zofran. Labs reviewed from the patients phone from [facility] 12/08/20 which showed, WBC elevated at 11,000, neutrophils 88%, Normal renal function and electrolytes, normal urinalysis. CT Abd/Pelvis w/contrast at [place] showed prox ileum- mid ileum with diffuse wall thickening and mesenteric vessel engorgement and edema suggesting enteritis secondary to underlying minimal nodulation treatment for cancer. Mild rectosigmoid colitis. Trace ascites. (12/08/20) Colonoscopy by Dr. Santos at [facility] 12/04/20 which showed ulcerations per the patient Initial labs indicated dehydration fluids were started at that time Fluids discontinued 12/10/2020 for worsening renal failure IV antibiotics Levaquin and Flagyl, DC'd per surgery She is feeling better, no longer having nausea or vomiting and pain is slightly improving. With elevated white count will rescanned patient repeat CT showed small bowel obstruction and moderate ascites (12/11/20) (4) Colitis: Code(s): K52.9 - Noninfective gastroenteritis and colitis, unspecified Status: Deleted Assessment and Plan: See above (5) ROLANDO (acute kidney injury): Code(s): N17.9 - Acute kidney failure, unspecified Status: Acute Assessment and Plan: renal function trending down 13/0.60 UA showing elevated specific gravity, hyaline casts could be from vomiting or due to her ROLANDO. Renal ultrasound: Unremarkable renal ultrasound. No stones, masses or hydronephrosis, ascites Trend labs Strict I&Os Fluids were stopped today Patient is not dehydrated with edema. UA did not show an infectious source Could be related to recent CT with contrast at [place] Nephrology consult thank you for recommendation check urine electrolytes (6) Urinary retention: Code(s): R33.9 - Retention of urine, unspecified Status: Acute Assessment and Plan: Patient found have urinary retention. Carter catheter was placed 12/09/2020 tamsulosin daily. Will need voiding trial prior to discharge. Strict I&Os (7) Abdominal pain: Qualifiers: Abdominal location: generalized Qualified Code(s): R10.84 - Generalized abdominal pain Code(s): R10.9 - Unspecified abdominal pain Status: Deleted Assessment and Plan: from bowel obstruction Surgical services consulted No pain reported today (8) Leukocytosis: Qualifiers: Leukocytosis type: unspecified Qualified Code(s): D72.829 - Elevated white blood cell count, unspecified Code(s): D72.829 - Elevated white blood cell count, unspecified Status: Deleted Assessment and Plan: WBC is better today 9.1 Better today Repeat abd CT showed obstruction (12/11/20) IV antibiotics DC'd post surgical intervention Lactic acid normal
[2020-12-13 08:00] VITALS: BP 154/77; PULSE 77; RESP 18; TEMP 36.7; O2SAT 100
--- NOTE | 2020-12-13 10:15 | PM.PNNEP ---
Progress Note: A&P Assessment and Plan (1) ROLANDO (acute kidney injury): Code(s): N17.9 - Acute kidney failure, unspecified Status: Acute Assessment and Plan: The patient has acute kidney injury. This is on top of normal kidney function. She had a renal ultrasound which showed no obstruction. Urinalysis showed a very high specific gravity of 1.036. Urine electrolytes non pre renal CK was normal Most likely this is from a combination of contrast exposure, urinary retention, and dehydration. Her creatinine has improved to normal with fluids and time away from the contrast. today's labs are pending. I will view from a distance going forward. (2) Urinary retention: Code(s): R33.9 - Retention of urine, unspecified Status: Acute Assessment and Plan: The patient had urinary retention and so has a Carter catheter in. (3) Hyponatremia: Code(s): E87.1 - Hypo-osmolality and hyponatremia Status: Acute Assessment and Plan: The patient has low sodium. This has dropped during the hospital stay. TSH is slightly high. Free T4 was normal Cortisol level is not low Most likely this was due to renal insufficiency and pre renal azotemia. Her sodium level has improved with fluids. (4) Hypertension: Code(s): I10 - Essential (primary) hypertension Status: Acute Assessment and Plan: This is a new issue for the patient, having only acquired this while getting chemotherapy. Her blood pressure is well controlled right now (5) Abdominal pain: Qualifiers: Abdominal location: generalized Qualified Code(s): R10.84 - Generalized abdominal pain Code(s): R10.9 - Unspecified abdominal pain Status: Deleted Assessment and Plan: This is improved (6) Ovarian cancer on right: Code(s): C56.1 - Malignant neoplasm of right ovary Status: Inactive Assessment and Plan: She is getting treatment at [facility] Subjective Date/time seen: 12/13/20 10:15 Interval history: Patient is feeling much better today. NG tube still in to suction. Getting some physical therapy now Exam Narrative: WDWN in NAD, resting comfortably in bed with NG tube in. skin no rash or subQ nodules head ncat lungs clear bilaterally cor reg no rub abd BS+ nontender and soft ext no edema or cyanosis. Objective Data Vital Signs Vital Signs: Vital Signs - 24 hr 12/12/20 12:00 12/12/20 16:00 12/12/20 20:00 Temperature 36.4 C 36.4 C 36.7 C Pulse Rate 87 84 81 Respiratory Rate 18 18 20 Blood Pressure 132/72 132/68 135/68 Pulse Oximetry 98 95 96 12/12/20 23:34 12/13/20 03:58 12/13/20 08:00 Temperature 36.6 C 36.7 C 36.7 C Pulse Rate 87 81 77 Respiratory Rate 18 18 18 Blood Pressure 133/82 134/71 154/77 H Pulse Oximetry 97 98 100 Intake/Output Intake/Output: Intake & Output 12/10/20 12/11/20 12/12/20 12/13/20 23:59 23:59 23:59 23:59 Intake Total 2718 1070 3130 250 Output Total 106 845 9541 400 Balance 2168 240 730 -150 Meds/Results Medications: Active Medications Generic Name Dose Route Start Last Admin Trade Name Freq PRN Reason Stop Dose Admin Alteplase, Recombinant 2 mg 12/13/20 09:06 Alteplase 2 Mg Vial (Cathflo) IV PUSH ONCE PRN Line Occlusion Enoxaparin Sodium 30 mg 12/11/20 21:00 12/13/20 00:01 Enoxaparin 30 Mg/0.3 Ml Syringe SUB-Q 30 mg Q24H BELINDA Administration Famotidine 20 mg 12/11/20 21:00 12/12/20 22:02 Famotidine 20 Mg/2 Ml Vial IV PUSH 20 mg Q12HR BELINDA Administration Heparin Sodium (Beef Lung) 50 units 12/10/20 09:00 12/12/20 08:31 Heparin Flush 50 Units/5 Ml Syringe IV PUSH 50 units QAM BELINDA Administration Heparin Sodium (Beef Lung) 50 units 12/09/20 09:28 Heparin Flush 50 Units/5 Ml Syringe IV PUSH PRN PRN after intermittent infusion Heparin Sodium (Beef Lung) 50 units 12/09/20 09:28 12/11/20 12:25 Heparin Flush 50 Units/5 Ml
--- NOTE | 2020-12-13 11:09 | PCPTNOTE ---
On 12/13/20, the student, Juan C JARA, provided care and completed [facility] documentation on this patient. I have reviewed the student's documentation and agree with the findings.
[2020-12-13] MEDS: ALTEPLASE 2 MG VIAL (CATHFLO) IV PUSH ×2 (11:10→13:48)
[2020-12-13 11:22] VITALS: BMI 35.2
[2020-12-13] MEDS: FAMOTIDINE 20 MG/2 ML VIAL IV PUSH ×2 (11:24→21:12)
--- NOTE | 2020-12-13 11:35 | PCDIET ---
Nutrition consult for TPN. See Nutrition Comprehensive Assessment Intervention. Following every Wednesday and Wednesday.
[2020-12-13 12:00] VITALS: BP 150/75; PULSE 83; RESP 18; TEMP 37.1; O2SAT 100
[2020-12-13] MEDS: MORPHINE SULFATE (*CRX) 2 MG/ML INJ IV PUSH (13:31)
--- NOTE | 2020-12-13 14:28 | PM.PNGS ---
Progress Note: A&P Assessment and Plan (1) Complete small bowel obstruction: Code(s): K56.601 - Complete intestinal obstruction, unspecified as to cause Status: Acute Assessment and Plan: Doing well postop day 2. Status post small-bowel resection for closed loop obstruction with bowel strangulation and infarction. Has good bowel sounds. Will DC NG and try clear liquids. Ambulate more. Use spirometer. (2) Abdominal ascites: Qualifiers: Ascites type: other type Qualified Code(s): R18.8 - Other ascites Code(s): R18.8 - Other ascites Status: Acute Assessment and Plan: Associated with the infarcted bowel. (3) Hyponatremia: Code(s): E87.1 - Hypo-osmolality and hyponatremia Status: Acute Assessment and Plan: Improving. Sodium up to 136 yesterday (4) ROLANDO (acute kidney injury): Code(s): N17.9 - Acute kidney failure, unspecified Status: Acute Assessment and Plan: creatinine 0.8 yesterday. Pending electrolytes today. Creatinine clearance was 30 yesterday. Subjective Subjective Date/Time Seen: 12/13/20 14:28 Post Op day: 2 Patient reports: no new complaints, feels better, flatus, no bowel movement and other ( NG seems to be clogged, can not aspirate any fluid. 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 and it was beeping frequently.) Review of Systems Review of Systems: All systems reviewed & are unremarkable except as noted in HPI and below Constitutional: Constitutional: Denies chills, Denies fever(s) and Denies headache(s) Cardiovascular: Cardiovascular: Denies chest pain and Denies dyspnea Respiratory: Respiratory: Denies cough and Denies dyspnea Gastrointestinal: Gastrointestinal: Reports as per HPI, Denies heartburn, Denies nausea and Denies vomiting Neurologic: Denies confusion and Denies headache(s) Exam Const: General: comfortable and no acute distress; No confusion Orientation/consciousness: patient oriented x3 and No confusion GI: Inspection: non-distended and incision ( Incision dry clean and intact. Healing well.) GI Palp: Yes Soft to palpation, Yes Tenderness to palpation present (GI), No Guarding due to palpation present (GI), No Hernia present, No Palpable mass present and No Rebound tenderness present Auscultation: normal bowel sounds Neuro: General: patient oriented x3, no focal motor deficits and No confusion Extrem: General: no calf tenderness and no edema Psych: Affect: normal affect Insight: Good insight present (Psych) Judgement: Good judgement present (Psych) Objective Data Vital Signs Vital Signs: Vital Signs - 24 hr 12/12/20 16:00 12/12/20 20:00 12/12/20 23:34 Temperature 36.4 C 36.7 C 36.6 C Pulse Rate 84 81 87 Respiratory Rate 18 20 18 Blood Pressure 132/68 135/68 133/82 Pulse Oximetry 95 96 97 12/13/20 03:58 12/13/20 08:00 12/13/20 12:00 Temperature 36.7 C 36.7 C 37.1 C Pulse Rate 81 77 83 Respiratory Rate 18 18 18 Blood Pressure 134/71 154/77 H 150/75 H Pulse Oximetry 98 100 100 Intake/Output Intake/Output: Intake & Output 12/10/20 12/11/20 12/12/20 12/13/20 23:59 23:59 23:59 23:59 Intake Total 2718 1070 3130 250 Output Total 690 538 1102 400 Balance 2168 240 730 -150 Meds/Results Medications: Active Medications Generic Name Dose Route Start Last Admin Trade Name Freq PRN Reason Stop Dose Admin Alteplase, Recombinant 2 mg 12/13/20 09:06 12/13/20 13:48 Alteplase 2 Mg Vial (Cathflo) IV PUSH 2 mg ONCE PRN Administration Line Occlusion Enoxaparin Sodium 30 mg 12/13/20 21:00 Enoxaparin 30 Mg/0.3 Ml Syringe SUB-Q Q12HR BELINDA Famotidine 20 mg 12/11/20 21:00 12/13/20 11:24 Famotidine 20 Mg/2 Ml Vial IV PUSH 20 mg Q12HR BELINDA Administration Heparin Sodium (Beef Lung) 50 units 12/10/20 09:00 12/13/20 11:26 Heparin Flush 50 Units/5 Ml Syringe IV PUSH Not Given QAM BELINDA Heparin Sodium (Beef Lung) 50 units 12/09/20
[2020-12-13 14:52] LABS: Anion Gap 4 mmol/L (8-16); Blood Urea Nitrogen 13 mg/dL (7-17); Calcium 7.7 mg/dL (8.4-10.2); Carbon Dioxide 29 mmol/L (22-30); Chloride 106 mmol/L (98-107); Estimated CRCL calculation 102 ml/min; Estimated Glomerular Filt Rate > 60; Glucose 113 mg/dL (65-110); Phosphorus 2.5 mg/dL (2.5-4.5); Potassium 4.3 mmol/L (3.4-5.0); Sodium 139 mmol/L (137-145); Triglycerides 149 mg/dL (<150)
[2020-12-13 15:00] LABS: Basophils Absolute Auto 0.1 K/mm3 (0.0-0.1); Basophils Percent Auto 0.9 % (0.2-1.2); Eosinophils Absolute Auto 0.4 K/mm3 (0-0.3); Hemoglobin 10.5 g/dL (12.0-15.0); Immature Granulocyte Absolute 0.22 K/mm3 (0.00-0.031); Immature Granulocyte Percent A 2.4 % (0-0.5); Lymphocytes Absolute Auto 1.67 K/mm3 (0.9-3.2); Lymphocytes Percent Auto 18.3 % (18.3-44.2); Mean Corpuscular HGB Conc 30.9 g/dl (32-36); Mean Corpuscular Hemoglobin 32.7 pg (26-34); Mean Corpuscular Volume 105.9 fl (80-100); Mean Platelet Volume 9.6 fl (7.4-10.4); Monocytes Absolute Auto 0.6 K/mm3 (0.1-0.6); Monocytes Percent Auto 6.7 % (2.6-8.5); Neutrophils Absolute Auto 6.2 K/mm3 (1.3-6.7); Neutrophils Percent Auto 67.7 % (45.5-73.1); Platelet Count Result 191 k/mm3 (150-375); Red Blood Count 3.21 M/mm3 (4.2-5.4); Red Cell Distribution Width 16.7 % (11.5-14.5); White Blood Count 9.1 K/mm3 (4.5-10.0)
[2020-12-13 16:00] VITALS: BP 150/68; PULSE 80; RESP 18; TEMP 36.9; O2SAT 99
[2020-12-13] MEDS: AMINO ACIDS 5%/D15W/E-LYTES/CA 2,000 ML with MULTIVITAMINS-12 INJ VIAL 1 2.5 ML, MULTIV... 40 ML IV CONT (17:15)
[2020-12-13] MEDS: FAT EMULSIONS IV 20% 250 ML 20.83 ML IVPB (17:21)
[2020-12-13] MEDS: MORPHINE SULFATE (*CRX) 4 MG/ML INJ IV PUSH (17:33)
[2020-12-13 18:15] LABS: Glucose Point of Care 93 mg/dl (65-105)
[2020-12-13 20:00] VITALS: BP 170/78; PULSE 86; RESP 18; TEMP 36.1; O2SAT 99
[2020-12-13] MEDS: HYDROcodone/acetaminophen (*CRX) 10-325 MG TABLET 1 TAB PO (21:12)
[2020-12-13] MEDS: amLODIPine BESYLATE 5 MG TABLET PO (23:15)
[2020-12-13 23:16] VITALS: PULSE 85
[2020-12-13] MEDS: METOPROLOL TARTRATE 25 MG TABLET PO (23:16)
[2020-12-14] VITALS (8 sets, daily range): BP systolic 147–185; BP diastolic 70–101; PULSE 70–86; RESP 16–20; TEMP 36.6–36.8; O2SAT 97–98
[2020-12-14 00:47] LABS: Glucose Point of Care 150 mg/dl (65-105)
[2020-12-14] MEDS: HYDROcodone/acetaminophen (*CRX) 10-325 MG TABLET 1 TAB PO ×4 (01:05→20:08)
[2020-12-14 05:55] LABS: Anion Gap 3 mmol/L (8-16); Blood Urea Nitrogen 9 mg/dL (7-17); Calcium 8.5 mg/dL (8.4-10.2); Carbon Dioxide 33 mmol/L (22-30); Chloride 101 mmol/L (98-107); Estimated CRCL calculation 119 ml/min; Estimated Glomerular Filt Rate > 60; Glucose 130 mg/dL (65-110); Phosphorus 3.9 mg/dL (2.5-4.5); Potassium 3.9 mmol/L (3.4-5.0); Sodium 137 mmol/L (137-145)
--- NOTE | 2020-12-14 09:02 | PM.IMPN ---
Progress Note: A&P Assessment and Plan (1) Complete small bowel obstruction: Code(s): K56.601 - Complete intestinal obstruction, unspecified as to cause Status: Acute Assessment and Plan: Post op day [address] shows a closed loop small-bowel obstruction 12/11/2020 general surgery has been consulted thank you for your recommendations exploratory lap 12/11/20 Removed about 100cm of infarcted bowel NG DC'd 12/13/2020 Continue Carter catheter for now Midline incision with staple, dressing dry Surgery to manage diet advanced to clear liquids trend labs Cefazolin x 2 bags given TPN/lipids started 12/12/2020, possible DC if patient is tolerating clear liquids PT/OT Will need to get moving more 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 Carter catheter was placed 12/09/2020, will need a voiding trail soon tamsulosin daily. Will need voiding trial prior to discharge. Strict I&Os (4) Hypertension: Code(s): I10 - Essential (primary) hypertension Status: Acute Assessment and Plan: Current blood pressure 159/79 Continue home metoprolol Trend blood pressure Adjust medications as need (5) ROLANDO (acute kidney injury): Code(s): N17.9 - Acute kidney failure, unspecified Status: Acute Assessment and Plan: Seems to be resolved at this time renal function trending down 9/0.50 UA showing elevated specific gravity, hyaline casts could be from vomiting or due to her ROLANDO. Renal ultrasound: Unremarkable renal ultrasound. No stones, masses or hydronephrosis, ascites Trend labs Strict I&Os Patient is not dehydrated with edema. UA did not show an infectious source Could be related to recent CT with contrast at [place] Nephrology consult-following from a distance (6) Leukocytosis: Qualifiers: Leukocytosis type: unspecified Qualified Code(s): D72.829 - Elevated white blood cell count, unspecified Code(s): D72.829 - Elevated white blood cell count, unspecified Status: Deleted Assessment and Plan: WBC is better as of yesterday 9.1 (12/13/20) Repeat abd CT showed obstruction (12/11/20) IV antibiotics DC'd post surgical intervention Lactic acid normal. Vitals stable 159/79, non-tachycardic, 97% on room air. UA showing no UTI Continue to trend labs (7) Abdominal pain: Qualifiers: Abdominal location: generalized Qualified Code(s): R10.84 - Generalized abdominal pain Code(s): R10.9 - Unspecified abdominal pain Status: Deleted Assessment and Plan: Seems to be resolved at this time from bowel obstruction Surgical services consulted No pain reported today (8) Ovarian cancer on right: Code(s): C56.1 - Malignant neoplasm of right ovary Status: Inactive Assessment and Plan: Status post hysterectomy and salpingo-oophorectomy Last chemo was 09/16/20 Will follow-up in outpatient setting (9) Abdominal ascites: Qualifiers: Ascites type: other type Qualified Code(s): R18.8 - Other ascites Code(s): R18.8 - Other ascites Status: Acute Assessment and Plan: CT shows moderate ascites probably from her cancer monitor (10) Hyponatremia: Code(s): E87.1 - Hypo-osmolality and hyponatremia Status: Acute Assessment and Plan: sodium today is 137 nephrology has been consulted thank you for your recommendations TSH 6.860, T4 1.22, and T3 0.54 cortisol levels 36.20 trend labs
--- NOTE | 2020-12-14 09:02 | P.PNIM_ITS ---
Progress Note: A&P Assessment and Plan (1) Complete small bowel obstruction: Code(s): K56.601 - Complete intestinal obstruction, unspecified as to cause Status: Acute Assessment and Plan: * Post op day 3 * Repeat CT shows a closed loop small-bowel obstruction 12/11/2020 * general surgery has been consulted thank you for your recommendations * exploratory lap 12/11/20 * Removed about 100cm of infarcted bowel * NG DC'd 12/13/2020 * Continue Carter catheter for now * Midline incision with staple, dressing dry * Surgery to manage * diet advanced to clear liquids * trend labs * Cefazolin x 2 bags given * TPN/lipids started 12/12/2020, possible DC if patient is tolerating clear liquids * PT/OT * Will need to get moving more * 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 * Carter catheter was placed 12/09/2020, will need a voiding trail soon * tamsulosin daily. * Will need voiding trial prior to discharge. * Strict I&Os (4) Hypertension: Code(s): I10 - Essential (primary) hypertension Status: Acute Assessment and Plan: * Current blood pressure 159/79 * Continue home metoprolol * Trend blood pressure * Adjust medications as need (5) ROLANDO (acute kidney injury): Code(s): N17.9 - Acute kidney failure, unspecified Status: Acute Assessment and Plan: * Seems to be resolved at this time * renal function trending down 9/0.50 * UA showing elevated specific gravity, hyaline casts could be from vomiting or due to her ROLANDO. * Renal ultrasound: Unremarkable renal ultrasound. No stones, masses or hydronephrosis, ascites * Trend labs * Strict I&Os * Patient is not dehydrated with edema. * UA did not show an infectious source * Could be related to recent CT with contrast at [place] * Nephrology consult-following from a distance (6) Leukocytosis: Qualifiers: Leukocytosis type: unspecified Qualified Code(s): D72.829 - Elevated white blood cell count, unspecified Code(s): D72.829 - Elevated white blood cell count, unspecified Status: Deleted Assessment and Plan: * WBC is better as of yesterday 9.1 (12/13/20) * Repeat abd CT showed obstruction (12/11/20) * IV antibiotics DC'd post surgical intervention * Lactic acid normal. * Vitals stable 159/79, non-tachycardic, 97% on room air. * UA showing no UTI * Continue to trend labs (7) Abdominal pain: Qualifiers: Abdominal location: generalized Qualified Code(s): R10.84 - Generalized abdominal pain Code(s): R10.9 - Unspecified abdominal pain Status: Deleted Assessment and Plan: * Seems to be resolved at this time * from bowel obstruction * Surgical services consulted * No pain reported today (8) Ovarian cancer on right: Code(s): C56.1 - Malignant neoplasm of right ovary Status: Inactive Assessment and Plan: * Status post hysterectomy and salpingo-oophorectomy * Last chemo was 09/16/20 * Will follow-up in outpatient setting (
[2020-12-14] MEDS: ENOXAPARIN 30 MG/0.3 ML SYRINGE SUB-Q ×2 (10:21→20:05)
[2020-12-14] MEDS: FAMOTIDINE 20 MG/2 ML VIAL IV PUSH (10:21)
[2020-12-14] MEDS: METOPROLOL SUCCINATE EXT REL 25 MG TABCR PO (10:21)
[2020-12-14] MEDS: amLODIPine BESYLATE 5 MG TABLET 10 MG PO (10:21)
--- NOTE | 2020-12-14 12:07 | PM.PNGS ---
Progress Note: A&P Assessment and Plan (1) Complete small bowel obstruction: Code(s): K56.601 - Complete intestinal obstruction, unspecified as to cause Status: Acute Assessment and Plan: tolerating liquids. Advance to full liquids and then soft diet. Continue to ambulate. Progressing very well. (2) Abdominal ascites: Qualifiers: Ascites type: other type Qualified Code(s): R18.8 - Other ascites Code(s): R18.8 - Other ascites Status: Resolved Assessment and Plan: Associated with bowel obstruction and bowel infarction. (3) Hyponatremia: Code(s): E87.1 - Hypo-osmolality and hyponatremia Status: Resolved Assessment and Plan: Resolved. Continue to monitor electrolytes (4) ROLANDO (acute kidney injury): Code(s): N17.9 - Acute kidney failure, unspecified Status: Resolved Assessment and Plan: creatinine and creatinine clearance are now normal. Subjective Subjective Date/Time Seen: 12/14/20 12:07 Post Op day: 3 Patient reports: no new complaints, feels better, pain is less, tolerating liquids well, flatus and no bowel movement Review of Systems Review of Systems: All systems reviewed & are unremarkable except as noted in HPI and below Constitutional: Constitutional: Denies body ache(s), Denies chills, Denies fever(s), Denies headache(s) and Denies poor appetite Cardiovascular: Cardiovascular: Denies chest pain and Denies dyspnea Respiratory: Respiratory: Denies cough and Denies dyspnea Gastrointestinal: Gastrointestinal: Reports as per HPI, Reports abdominal pain, Denies nausea and Denies vomiting Neurologic: Denies confusion and Denies headache(s) Exam Const: General: comfortable and no acute distress; No confusion Orientation/consciousness: patient oriented x3 and No confusion GI: Inspection: non-distended and incision (Dressing dry and intact) GI Palp: Yes Soft to palpation and Yes Tenderness to palpation present (GI) Auscultation: normal bowel sounds Neuro: General: patient oriented x3, no focal motor deficits and No confusion Extrem: General: no calf tenderness and no edema Psych: Affect: normal affect Insight: Good insight present (Psych) Judgement: Good judgement present (Psych) Objective Data Vital Signs Vital Signs: Vital Signs - 24 hr 12/13/20 16:00 12/13/20 20:00 12/13/20 23:16 Temperature 36.9 C 36.1 C L Pulse Rate 80 86 85 Respiratory Rate 18 18 Blood Pressure 150/68 H 170/78 H Pulse Oximetry 99 99 12/14/20 00:00 12/14/20 04:00 12/14/20 08:00 Temperature 36.7 C 36.6 C Pulse Rate 75 70 82 Respiratory Rate 18 20 20 Blood Pressure 151/77 H 159/79 H Pulse Oximetry 97 97 97 12/14/20 10:21 Temperature Pulse Rate 82 Respiratory Rate Blood Pressure Pulse Oximetry Intake/Output Intake/Output: Intake & Output 12/11/20 12/12/20 12/13/20 12/14/20 23:59 23:59 23:59 23:59 Intake Total 1070 3130 2870 1290 Output Total 830 2400 600 Balance 903 208 1516 1290 Meds/Results Medications: Active Medications Generic Name Dose Route Start Last Admin Trade Name Freq PRN Reason Stop Dose Admin Acetaminophen 500 mg 12/13/20 14:24 Acetaminophen 500 Mg Tablet PO Q6H PRN Mild Pain (1-3) or Fever Hydrocodone Bitart/Acetaminophen 1 tab 12/13/20 14:24 Hydrocodone/Acetaminophen (*Crx) 5-325 Mg Tablet PO Q4H PRN Pain Rated 4-6 Hydrocodone Bitart/Acetaminophen 1 tab 12/13/20 14:24 12/14/20 10:20 Hydrocodone/Acetaminophen (*Crx) 10-325 Mg Tablet PO 1 tab Q4H PRN Administration Pain Rated 7-10 Alteplase, Recombinant 2 mg 12/13/20 09:06 12/13/20 13:48 Alteplase 2 Mg Vial (Cathflo) IV PUSH 2 mg ONCE PRN Administration Line Occlusion Amlodipine Besylate 10 mg 12/14/20 09:00 12/14/20 10:21 Amlodipine Besylate 5 Mg Tablet PO 10 mg DAILY BELINDA Administration Enoxaparin Sodium 30 mg 12/13/20 21:00 12/14/20 10:21
[2020-12-14] MEDS: FAT EMULSIONS IV 20% 250 ML 20.83 ML IVPB (12:20)
[2020-12-14] MEDS: AMINO ACIDS 5%/D15W/E-LYTES/CA 2,000 ML with MULTIVITAMINS-12 INJ VIAL 1 2.5 ML, MULTIV... 40 ML IV CONT (12:20)
--- NOTE | 2020-12-14 14:51 | PM.EVENT ---
Event Note Event Note Event Note: labs stable I will view from a distance.
[2020-12-14 15:42] LABS: Glucose Point of Care 99 mg/dl (65-105)
[2020-12-14 18:36] LABS: Glucose Point of Care 133 mg/dl (65-105)
[2020-12-14] MEDS: FAMOTIDINE 20 MG TABLET PO (20:05)
[2020-12-14] MEDS: CENTRAL LINE FLUSH 10 ML IV PUSH (22:00)
[2020-12-14] MEDS: NALOXONE HCL 0.4 MG/ML VIAL 0.1 MG IV PUSH (22:17)
[2020-12-14] MEDS: hydrALAZINE HCL 20 MG/ML VIAL 10 MG IV PUSH (23:22)
[2020-12-15 00:22] LABS: CA-125 107 U/mL (<35)
[2020-12-15 02:58] LABS: Glucose Point of Care 137 mg/dl (65-105)
[2020-12-15 05:46] VITALS: BP 155/97; PULSE 96; RESP 20; TEMP 37.2; O2SAT 97
[2020-12-15] MEDS: HYDROcodone/acetaminophen (*CRX) 5-325 MG TABLET 1 TAB PO ×2 (05:50→11:45)
[2020-12-15] MEDS: CENTRAL LINE FLUSH 10 ML IV PUSH ×3 (06:00→21:25)
[2020-12-15 06:14] LABS: Glucose Point of Care 111 mg/dl (65-105)
[2020-12-15 06:17] LABS: Anion Gap 2 mmol/L (8-16); Blood Urea Nitrogen 10 mg/dL (7-17); Calcium 8.4 mg/dL (8.4-10.2); Carbon Dioxide 34 mmol/L (22-30); Chloride 98 mmol/L (98-107); Estimated CRCL calculation 101 ml/min; Estimated Glomerular Filt Rate > 60; Glucose 240 mg/dL (65-110); Phosphorus 5.2 mg/dL (2.5-4.5); Potassium 4.1 mmol/L (3.4-5.0); Sodium 134 mmol/L (137-145)
--- NOTE | 2020-12-15 07:25 | P.PNIM_ITS ---
Progress Note: A&P Assessment and Plan (1) Complete small bowel obstruction: Code(s): K56.601 - Complete intestinal obstruction, unspecified as to cause Status: Acute Assessment and Plan: * Post op day 4 * Repeat CT shows a closed loop small-bowel obstruction 12/11/2020 * general surgery has been consulted thank you for your recommendations * exploratory lap 12/11/20 * Removed about 100cm of infarcted bowel * NG DC'd 12/13/2020 * Continue Carter catheter for now * Midline incision with staple * Surgery to manage * diet advanced to low fiber, advance as tolerated * trend labs * TPN/lipids started 12/12/2020, Stop 12/15/20 * PT/OT * Will need to get moving more, suggested walking in halls * Oral pain medications (2) Bowel obstruction: Code(s): K56.609 - Unspecified intestinal obstruction, unspecified as to partial versus complete obstruction Status: Deleted Assessment and Plan: * See above (3) Urinary retention: Code(s): R33.9 - Retention of urine, unspecified Status: Acute Assessment and Plan: * Patient found have urinary retention. * Carter catheter was placed 12/09/2020, will need a voiding trail soon * tamsulosin daily. * Will need voiding trial prior to discharge. * Strict I&Os (4) Hypertension: Code(s): I10 - Essential (primary) hypertension Status: Acute Assessment and Plan: * Current blood pressure 155/97 * Continue home metoprolol * Trend blood pressure * Add hydralazine 10mg IV PRN * Adjust medications as need (5) ROLANDO (acute kidney injury): Code(s): N17.9 - Acute kidney failure, unspecified Status: Resolved Assessment and Plan: * Seems to be resolved at this time * renal function trending down 10/0.60 * UA showing elevated specific gravity, hyaline casts could be from vomiting or due to her ROLANDO. * Renal ultrasound: Unremarkable renal ultrasound. No stones, masses or hydronephrosis, ascites (12/09/20) * Trend labs * Strict I&Os * Patient is not dehydrated with edema. * UA did not show an infectious source * Could be related to recent CT with contrast at [facility] * Nephrology consult-following from a distance (6) Leukocytosis: Qualifiers: Leukocytosis type: unspecified Qualified Code(s): D72.829 - Elevated white blood cell count, unspecified Code(s): D72.829 - Elevated white blood cell count, unspecified Status: Deleted Assessment and Plan: * WBC trend down * CBC ordered for tomorrow * Repeat abd CT showed obstruction (12/11/20) * IV antibiotics DC'd post surgical intervention * Lactic acid normal. * Vitals stable 159/79, non-tachycardic, 97% on room air. * UA showing no UTI * Continue to trend labs (7) Abdominal pain: Qualifiers: Abdominal location: generalized Qualified Code(s): R10.84 - Generalized abdominal pain Code(s): R10.9 - Unspecified abdominal pain Status: Deleted Assessment and Plan: * Seems to be resolved at this time * from bowel obstruction * Surgical services consulted * No pain reported today (8) Ovarian cancer on right: Code(s): C56.1 - Malignant neoplasm of right ovary Status: Inactive Assessment and Plan: * Status post hysterectomy and salpingo-oophorectomy * Last chemo was 09/16/20 * Will follow-up in outpatient setting (
--- NOTE | 2020-12-15 07:25 | PM.IMPN ---
Progress Note: A&P Assessment and Plan (1) Complete small bowel obstruction: Code(s): K56.601 - Complete intestinal obstruction, unspecified as to cause Status: Acute Assessment and Plan: Post op day [address] shows a closed loop small-bowel obstruction 12/11/2020 general surgery has been consulted thank you for your recommendations exploratory lap 12/11/20 Removed about 100cm of infarcted bowel NG DC'd 12/13/2020 Continue Carter catheter for now Midline incision with staple Surgery to manage diet advanced to low fiber, advance as tolerated trend labs TPN/lipids started 12/12/2020, Stop 12/15/20 PT/OT Will need to get moving more, suggested walking in halls Oral pain medications (2) Bowel obstruction: Code(s): K56.609 - Unspecified intestinal obstruction, unspecified as to partial versus complete obstruction Status: Deleted Assessment and Plan: See above (3) Urinary retention: Code(s): R33.9 - Retention of urine, unspecified Status: Acute Assessment and Plan: Patient found have urinary retention. Carter catheter was placed 12/09/2020, will need a voiding trail soon tamsulosin daily. Will need voiding trial prior to discharge. Strict I&Os (4) Hypertension: Code(s): I10 - Essential (primary) hypertension Status: Acute Assessment and Plan: Current blood pressure 155/97 Continue home metoprolol Trend blood pressure Add hydralazine 10mg IV PRN Adjust medications as need (5) ROLANDO (acute kidney injury): Code(s): N17.9 - Acute kidney failure, unspecified Status: Resolved Assessment and Plan: Seems to be resolved at this time renal function trending down 10/0.60 UA showing elevated specific gravity, hyaline casts could be from vomiting or due to her ROLANDO. Renal ultrasound: Unremarkable renal ultrasound. No stones, masses or hydronephrosis, ascites (12/09/20) Trend labs Strict I&Os Patient is not dehydrated with edema. UA did not show an infectious source Could be related to recent CT with contrast at [facility] Nephrology consult-following from a distance (6) Leukocytosis: Qualifiers: Leukocytosis type: unspecified Qualified Code(s): D72.829 - Elevated white blood cell count, unspecified Code(s): D72.829 - Elevated white blood cell count, unspecified Status: Deleted Assessment and Plan: WBC trend down CBC ordered for tomorrow Repeat abd CT showed obstruction (12/11/20) IV antibiotics DC'd post surgical intervention Lactic acid normal. Vitals stable 159/79, non-tachycardic, 97% on room air. UA showing no UTI Continue to trend labs (7) Abdominal pain: Qualifiers: Abdominal location: generalized Qualified Code(s): R10.84 - Generalized abdominal pain Code(s): R10.9 - Unspecified abdominal pain Status: Deleted Assessment and Plan: Seems to be resolved at this time from bowel obstruction Surgical services consulted No pain reported today (8) Ovarian cancer on right: Code(s): C56.1 - Malignant neoplasm of right ovary Status: Inactive Assessment and Plan: Status post hysterectomy and salpingo-oophorectomy Last chemo was 09/16/20 Will follow-up in outpatient setting (9) Abdominal ascites: Qualifiers: Ascites type: other type Qualified Code(s): R18.8 - Other ascites Code(s): R18.8 - Other ascites Status: Resolved Assessment and Plan: CT shows moderate ascites probably from her cancer monitor (10) Hyponatremia: Code(s): E87.1 - Hypo-osmolality and hyponatremia Status: Resolved Assessment and Plan: sodium today is 134 nephrology has been consulted thank you for your recommendations TSH 6.860, T4 1.22, and T3 0.54 cortisol levels 36.20 trend lab
[2020-12-15 08:00] VITALS: PULSE 92; RESP 20; O2SAT 97
[2020-12-15] MEDS: ENOXAPARIN 30 MG/0.3 ML SYRINGE SUB-Q ×2 (08:54→21:16)
[2020-12-15] MEDS: amLODIPine BESYLATE 5 MG TABLET 10 MG PO (08:54)
[2020-12-15] MEDS: hydrALAZINE HCL 20 MG/ML VIAL 10 MG IV PUSH (08:54)
[2020-12-15 08:55] VITALS: PULSE 92
[2020-12-15] MEDS: FAMOTIDINE 20 MG TABLET PO ×2 (08:55→21:16)
[2020-12-15] MEDS: METOPROLOL SUCCINATE EXT REL 25 MG TABCR PO (08:55)
[2020-12-15 10:33] VITALS: BP 141/84
--- NOTE | 2020-12-15 10:50 | PM.PNGS ---
Progress Note: A&P Assessment and Plan (1) Complete small bowel obstruction: Code(s): K56.601 - Complete intestinal obstruction, unspecified as to cause Status: Acute Assessment and Plan: No bowel movement as yet but continues to tolerate oral intake well. Will advance diet to solid food. Increase ambulation. Saline lock IV. Stop TPN today. Recheck labs and exam again tomorrow. Still concerned about development of postoperative adynamic ileus although no sign of this as yet. Subjective Subjective Date/Time Seen: 12/15/20 10:50 Post Op day: 4 Patient reports: no new complaints, pain is less, tolerating liquids well and no bowel movement Review of Systems Review of Systems: All systems reviewed & are unremarkable except as noted in HPI and below Constitutional: Constitutional: Denies chills, Denies fever(s), Denies headache(s) and Denies night sweats Cardiovascular: Cardiovascular: Denies chest pain and Denies dyspnea Respiratory: Respiratory: Denies cough and Denies dyspnea Gastrointestinal: Gastrointestinal: Reports as per HPI, Denies heartburn, Denies nausea and Denies vomiting Neurologic: Denies confusion and Denies headache(s) Exam Const: General: comfortable and no acute distress; No confusion Orientation/consciousness: patient oriented x3 and No confusion GI: Inspection: non-distended and incision (Incision dry and healing well) GI Palp: Yes Soft to palpation, Yes Tenderness to palpation present (GI) (Mild appropriate incisional tenderness), No Guarding due to palpation present (GI) and No Rebound tenderness present Auscultation: normal bowel sounds Neuro: General: patient oriented x3, no focal motor deficits and No confusion Extrem: General: no calf tenderness and no edema Psych: Affect: normal affect Insight: Good insight present (Psych) Judgement: Good judgement present (Psych) Objective Data Vital Signs Vital Signs: Vital Signs - 24 hr 12/14/20 14:00 12/14/20 20:00 12/14/20 21:49 Temperature 36.6 C 36.8 C Pulse Rate 74 86 86 Respiratory Rate 16 20 20 Blood Pressure 147/70 H 183/101 H Pulse Oximetry 97 98 98 12/14/20 22:51 12/15/20 05:46 12/15/20 08:00 Temperature 37.2 C Pulse Rate 96 92 Respiratory Rate 20 20 Blood Pressure 185/93 H 155/97 H Pulse Oximetry 97 97 12/15/20 08:55 12/15/20 10:33 Temperature Pulse Rate 92 Respiratory Rate Blood Pressure 141/84 H Pulse Oximetry Intake/Output Intake/Output: Intake & Output 12/12/20 12/13/20 12/14/20 12/15/20 23:59 23:59 23:59 23:59 Intake Total 3130 2870 3935 1290 Output Total 2400 600 750 Balance 730 2270 3185 1290 Meds/Results Medications: Active Medications Generic Name Dose Route Start Last Admin Trade Name Freq PRN Reason Stop Dose Admin Acetaminophen 500 mg 12/13/20 14:24 Acetaminophen 500 Mg Tablet PO Q6H PRN Mild Pain (1-3) or Fever Hydrocodone Bitart/Acetaminophen 1 tab 12/13/20 14:24 12/15/20 05:50 Hydrocodone/Acetaminophen (*Crx) 5-325 Mg Tablet PO 1 tab Q4H PRN Administration Pain Rated 4-6 Hydrocodone Bitart/Acetaminophen 1 tab 12/13/20 14:24 12/14/20 20:08 Hydrocodone/Acetaminophen (*Crx) 10-325 Mg Tablet PO 1 tab Q4H PRN Administration Pain Rated 7-10 Alteplase, Recombinant 2 mg 12/13/20 09:06 12/13/20 13:48 Alteplase 2 Mg Vial (Cathflo) IV PUSH 2 mg ONCE PRN Administration Line Occlusion Amlodipine Besylate 10 mg 12/14/20 09:00 12/15/20 08:54 Amlodipine Besylate 5 Mg Tablet PO 10 mg DAILY BELINDA Administration Enoxaparin Sodium 30 mg 12/13/20 21:00 12/15/20 08:54 Enoxaparin 30 Mg/0.3 Ml Syringe SUB-Q 30 mg Q12HR BELINDA Administration Famotidine 20 mg 12/14/20 21:00 12/15/20 08:55 Famotidine 20 Mg Tablet PO 20 mg Q12HR BELINDA Administration Heparin Sodium (Beef Lung) 50 units 12/10/20 09:00 12/15/20 08:54 Heparin Flush 50 Units/5 Ml Syringe IV PUSH 50 units
[2020-12-15 12:11] LABS: Glucose Point of Care 109 mg/dl (65-105)
--- NOTE | 2020-12-15 13:28 | PCOTNOTE ---
Attempted to pt for Occupational therapy tx this PM, however, pt declined to participate in all adls/therapeutic activities/and ue strengthening, stating I am getting a migraine...I am exhausted. RN was made aware of pt's complaint of pain. Will continue per poc duration/frequency tomorrow.
[2020-12-15 14:00] VITALS: BP 143/85; PULSE 80; RESP 20; TEMP 37; O2SAT 99
[2020-12-15] MEDS: SUMAtriptan SUCCINATE 25 MG TABLET 100 MG PO (15:37)
[2020-12-15 21:35] VITALS: BP 151/87; PULSE 80; RESP 18; TEMP 36.6; O2SAT 100
[2020-12-16 05:34] VITALS: BP 138/75; PULSE 80; RESP 18; TEMP 36.8; O2SAT 98
[2020-12-16 05:51] LABS: Hematocrit 33.6 % (37.0-47.0); Hemoglobin 11.1 g/dL (12.0-15.0); Mean Corpuscular Volume 96.8 fl (80-100); Mean Platelet Volume 9.4 fl (7.4-10.4); Platelet Count Result 201 k/mm3 (150-375); Red Blood Count 3.47 M/mm3 (4.2-5.4); Red Cell Distribution Width 16.4 % (11.5-14.5); White Blood Count 7.2 K/mm3 (4.5-10.0)
[2020-12-16 06:04] LABS: Anion Gap 3 mmol/L (8-16); Blood Urea Nitrogen 12 mg/dL (7-17); Calcium 8.6 mg/dL (8.4-10.2); Carbon Dioxide 32 mmol/L (22-30); Chloride 100 mmol/L (98-107); Estimated CRCL calculation 101 ml/min; Estimated Glomerular Filt Rate > 60; Glucose 117 mg/dL (65-110); Potassium 3.9 mmol/L (3.4-5.0); Sodium 135 mmol/L (137-145)
[2020-12-16] MEDS: CENTRAL LINE FLUSH 10 ML IV PUSH (06:23)
[2020-12-16 08:08] VITALS: PULSE 80
[2020-12-16] MEDS: FAMOTIDINE 20 MG TABLET PO (08:08)
[2020-12-16] MEDS: amLODIPine BESYLATE 5 MG TABLET 10 MG PO (08:08)
[2020-12-16] MEDS: METOPROLOL SUCCINATE EXT REL 25 MG TABCR PO (08:08)
[2020-12-16] MEDS: ENOXAPARIN 30 MG/0.3 ML SYRINGE SUB-Q (08:09)
--- NOTE | 2020-12-16 09:29 | PM.PNGS ---
Progress Note: A&P Assessment and Plan (1) Complete small bowel obstruction: Code(s): K56.601 - Complete intestinal obstruction, unspecified as to cause Status: Acute Assessment and Plan: POD#5 and continues to do well post-operatively. Bowel function returned and she is tolerating a regular diet. Pain well-controlled and tolerating activity. Okay to discharge from a surgical standpoint. F/u with Dr. Jolley in the office for staple removal. Additional Plan I have discussed the plan of care with Dr. Jolley. Subjective Subjective Date/Time Seen: 12/16/20 09:00 Post Op day: 5 (Small-bowel resection) Patient reports: no new complaints, voiding w/o difficulty, flatus, bowel movement and afebrile Interval history: Patient seen and examined this morning. Reports feeling well without any specific complaints. Tolerating regular diet. Denies nausea, vomiting, or bloating. Bowels are moving. Pain is well controlled. Review of Systems Review of Systems: All systems reviewed & are unremarkable except as noted in HPI and below Constitutional: Constitutional: Reports as per HPI, Reports no additional constitutional complaints, Denies chills and Denies fever(s) Cardiovascular: Cardiovascular: Reports no additional cardiovascular complaints, Denies chest pain and Denies leg edema Respiratory: Respiratory: Reports no additional respiratory complaints, Denies cough and Denies dyspnea Gastrointestinal: Gastrointestinal: Reports as per HPI and Reports no additional gastrointestinal complaints Neurologic: Reports system reviewed and no additional complaints, except as documented, Denies Abnormal speech present and Denies focal weakness Exam Const: General: comfortable, no acute distress, alert and awake Orientation/consciousness: patient oriented x3 Resp: Effort & Inspection: normal respiratory effort Auscultation: clear to auscultation bilaterally Cardio: Rate: regular rate Rhythm: regular rhythm GI: Inspection: non-distended and incision ( Incision clean and dry, barron intact. no erythema or drainage) GI Palp: Yes Soft to palpation, Yes Tenderness to palpation present (GI) ( Minimal incisional) and No Guarding due to palpation present (GI) Auscultation: normal bowel sounds Skin: General skin exam: normal color Neuro: General: moves all extremities and no focal motor deficits Extrem: General: no clubbing, cyanosis or edema and no calf tenderness Psych: Mental Status: mental status grossly normal Insight: Good insight present (Psych) Judgement: Good judgement present (Psych) Objective Data Vital Signs Vital Signs: Vital Signs - 24 hr 12/15/20 10:33 12/15/20 14:00 12/15/20 21:35 Temperature 98.6 F 97.9 F Pulse Rate 80 80 Respiratory Rate 20 18 Blood Pressure 141/84 H 143/85 H 151/87 H Pulse Oximetry 99 100 12/16/20 05:34 12/16/20 08:08 Temperature 98.3 F Pulse Rate 80 80 Respiratory Rate 18 Blood Pressure 138/75 Pulse Oximetry 98 Intake/Output Intake/Output: Intake & Output 12/13/20 12/14/20 12/15/20 12/16/20 23:59 23:59 23:59 23:59 Intake Total 2870 3935 1770 240 Output Total 600 750 Balance 2270 3185 1770 240 Meds/Results Medications: Active Medications Generic Name Dose Route Start Last Admin Trade Name Freq PRN Reason Stop Dose Admin Acetaminophen 500 mg 12/13/20 14:24 Acetaminophen 500 Mg Tablet PO Q6H PRN Mild Pain (1-3) or Fever Hydrocodone Bitart/Acetaminophen 1 tab 12/13/20 14:24 12/15/20 11:45 Hydrocodone/Acetaminophen (*Crx) 5-325 Mg Tablet PO 1 tab Q4H PRN Administration Pain Rated 4-6 Hydrocodone Bitart/Acetaminophen 1 tab 12/13/20 14:24 12/14/20 20:08 Hydrocodone/Acetaminophen (*Crx) 10-325 Mg Tablet PO 1 tab Q4H PRN Administration Pain Rated 7-10 Alteplase, Recombinant 2 mg 12/13/20 09:06 12/13/20 13:48 Alteplase 2 Mg Vial (Cathflo) IV PUSH 2 mg ONCE PRN Administration Line Occl
--- NOTE | 2020-12-16 11:20 | P.DS_ITS ---
DS: Admitting Diagnosis Discharge Date Date of service 12/16/20 at 9:30 a.m. Admitting Diagnosis small loop bowel obstruction DS: Discharge Diagnosis Discharge Diagnosis (1) Complete small bowel obstruction: Code(s): K56.601 - Complete intestinal obstruction, unspecified as to cause Status: Acute Assessment and Plan: * Post op day 4 * Repeat CT shows a closed loop small-bowel obstruction 12/11/2020 * general surgery has been consulted thank you for your recommendations * exploratory lap 12/11/20 * Removed about 100cm of infarcted bowel * NG DC'd 12/13/2020 * Continue Carter catheter for now * Midline incision with staple * Surgery to manage * diet advanced to low fiber, advance as tolerated * trend labs * TPN/lipids started 12/12/2020, Stop 12/15/20 * PT/OT * Will need to get moving more, suggested walking in halls * Oral pain medications (2) Bowel obstruction: Code(s): K56.609 - Unspecified intestinal obstruction, unspecified as to partial versus complete obstruction Status: Deleted Assessment and Plan: * See above (3) Urinary retention: Code(s): R33.9 - Retention of urine, unspecified Status: Acute Assessment and Plan: * Patient found have urinary retention. * Carter catheter was placed 12/09/2020, will need a voiding trail soon * tamsulosin daily. * Will need voiding trial prior to discharge. * Strict I&Os (4) Hypertension: Code(s): I10 - Essential (primary) hypertension Status: Acute Assessment and Plan: * Current blood pressure 155/97 * Continue home metoprolol * Trend blood pressure * Add hydralazine 10mg IV PRN * Adjust medications as need (5) ROLANDO (acute kidney injury): Code(s): N17.9 - Acute kidney failure, unspecified Status: Resolved Assessment and Plan: * Seems to be resolved at this time * renal function trending down 10/0.60 * UA showing elevated specific gravity, hyaline casts could be from vomiting or due to her ROLANDO. * Renal ultrasound: Unremarkable renal ultrasound. No stones, masses or hydronephrosis, ascites (12/09/20) * Trend labs * Strict I&Os * Patient is not dehydrated with edema. * UA did not show an infectious source * Could be related to recent CT with contrast at [facility] * Nephrology consult-following from a distance (6) Leukocytosis: Qualifiers: Leukocytosis type: unspecified Qualified Code(s): D72.829 - Elevated white blood cell count, unspecified Code(s): D72.829 - Elevated white blood cell count, unspecified Status: Deleted Assessment and Plan: * WBC trend down * CBC ordered for tomorrow * Repeat abd CT showed obstruction (12/11/20) * IV antibiotics DC'd post surgical intervention * Lactic acid normal. * Vitals stable 159/79, non-tachycardic, 97% on room air. * UA showing no UTI * Continue to trend labs (7) Abdominal pain: Qualifiers: Abdominal location: generalized Qualified Code(s): R10.84 - Generalized abdominal pain Code(s): R10.9 - Unspecified abdominal pain Status: Deleted Assessment and Plan: * Seems to be resolved at this time * from bowel obstruction * Surgical services consulted * No pain reported today (8) Ovarian cancer on right: Code(s): C56.1 - Malignant neoplasm of right ovary Status: Inactive Assessment and Plan:
--- NOTE | 2020-12-16 11:20 | PM.DS ---
DS: Admitting Diagnosis Discharge Date Date of service 12/16/20 at 9:30 a.m. Admitting Diagnosis small loop bowel obstruction DS: Discharge Diagnosis Discharge Diagnosis (1) Complete small bowel obstruction: Code(s): K56.601 - Complete intestinal obstruction, unspecified as to cause Status: Acute Assessment and Plan: Post op day [address] shows a closed loop small-bowel obstruction 12/11/2020 general surgery has been consulted thank you for your recommendations exploratory lap 12/11/20 Removed about 100cm of infarcted bowel NG DC'd 12/13/2020 Continue Carter catheter for now Midline incision with staple Surgery to manage diet advanced to low fiber, advance as tolerated trend labs TPN/lipids started 12/12/2020, Stop 12/15/20 PT/OT Will need to get moving more, suggested walking in halls Oral pain medications (2) Bowel obstruction: Code(s): K56.609 - Unspecified intestinal obstruction, unspecified as to partial versus complete obstruction Status: Deleted Assessment and Plan: See above (3) Urinary retention: Code(s): R33.9 - Retention of urine, unspecified Status: Acute Assessment and Plan: Patient found have urinary retention. Carter catheter was placed 12/09/2020, will need a voiding trail soon tamsulosin daily. Will need voiding trial prior to discharge. Strict I&Os (4) Hypertension: Code(s): I10 - Essential (primary) hypertension Status: Acute Assessment and Plan: Current blood pressure 155/97 Continue home metoprolol Trend blood pressure Add hydralazine 10mg IV PRN Adjust medications as need (5) ROLANDO (acute kidney injury): Code(s): N17.9 - Acute kidney failure, unspecified Status: Resolved Assessment and Plan: Seems to be resolved at this time renal function trending down 10/0.60 UA showing elevated specific gravity, hyaline casts could be from vomiting or due to her ROLANDO. Renal ultrasound: Unremarkable renal ultrasound. No stones, masses or hydronephrosis, ascites (12/09/20) Trend labs Strict I&Os Patient is not dehydrated with edema. UA did not show an infectious source Could be related to recent CT with contrast at [facility] Nephrology consult-following from a distance (6) Leukocytosis: Qualifiers: Leukocytosis type: unspecified Qualified Code(s): D72.829 - Elevated white blood cell count, unspecified Code(s): D72.829 - Elevated white blood cell count, unspecified Status: Deleted Assessment and Plan: WBC trend down CBC ordered for tomorrow Repeat abd CT showed obstruction (12/11/20) IV antibiotics DC'd post surgical intervention Lactic acid normal. Vitals stable 159/79, non-tachycardic, 97% on room air. UA showing no UTI Continue to trend labs (7) Abdominal pain: Qualifiers: Abdominal location: generalized Qualified Code(s): R10.84 - Generalized abdominal pain Code(s): R10.9 - Unspecified abdominal pain Status: Deleted Assessment and Plan: Seems to be resolved at this time from bowel obstruction Surgical services consulted No pain reported today (8) Ovarian cancer on right: Code(s): C56.1 - Malignant neoplasm of right ovary Status: Inactive Assessment and Plan: Status post hysterectomy and salpingo-oophorectomy Last chemo was 09/16/20 Will follow-up in outpatient setting (9) Abdominal ascites: Qualifiers: Ascites type: other type Qualified Code(s): R18.8 - Other ascites Code(s): R18.8 - Other ascites Status: Resolved Assessment and Plan: CT shows moderate ascites probably from her cancer monitor (10) Hyponatremia: Code(s): E87.1 - Hypo-osmolality and hyponatremia Status: Resolved Assessment and Plan: sodium today is 134
--- NOTE | 2020-12-16 11:31 | PCNFU ---
Nutrition Follow-Up Complete: Altered GI function as related to Small bowel resection as evidenced by TPN/NPO. Goal: Meet estimated nutritional needs. Patient had met current goal. No new goal. Pt current nutrition is Low Fiber diet. Last recorded weight is 97.4 kg, down from 98.9 kg on admit. Bowel Motility:+BM reported 12/15 Labs Reviewed:Na 135, Hct 33.6,Hgb 11.1 Meds Noted:Norvasc,Heparin, Lovenox, Pepcid,Toprol. Additional Notes: Nutrition follow up. Patient seen today. Tolerated low fiber breakfast today. TPN has been discontinued. Agree with diet orders. Skin: WNL. Monitoring: Will monitor every 7 days.
--- NOTE | 2020-12-16 11:45 | PCOTNOTE ---
Attempted to see Patient this A.M. for a requested ADL prior to discharging this P.M. Upon entering the room Patient in bed, already dressed. Patient was asked to perform a shower as requested, declined. Patient stated the doctor said she could just perform bathing at home and she stated I am waiting to leave. Patient asked if she had any difficulties with dressing, stated No, I did it by myself . Patient had no concerns or questions at this time.
== END 2020-12-16 13:25 | disposition home or self-care (01) | DRG 329 ==
LOC: ANHED 12-09 01:42 → ANH3MEDSUR 12-09 02:38
PROVIDERS: Internal Medicine Nephrology; Nurse Practitioner Family; Physician Assistant; Surgery; Admitting Provider Internal Medicine; Emergency Provider Emergency Medicine; PCP Physician Assistant; Visit Provider Nurse Practitioner
PROC: 0DBB0ZZ Excision of Ileum, Open Approach (ICD-10-PCS; CPT 49000; principal; 2020-12-11 14:30)
DX: K56.52 Intestinal adhesions [bands] with complete obstruction (principal); K55.069 Acute infarction of intestine, part and extent unspecified; R18.8 Other ascites; N17.9 Acute kidney failure, unspecified; E87.1 Hypo-osmolality and hyponatremia; F41.9 Anxiety disorder, unspecified; E78.5 Hyperlipidemia, unspecified; G43.909 Migraine, unspecified, not intractable, without status migrainosus; Z87.891 Personal history of nicotine dependence; Z85.43 Personal history of malignant neoplasm of ovary; Z90.710 Acquired absence of both cervix and uterus; K52.9 Noninfective gastroenteritis and colitis, unspecified; R33.9 Retention of urine, unspecified; I10 Essential (primary) hypertension; E86.0 Dehydration; T50.8X5A Adverse effect of diagnostic agents, initial encounter; Y92.239 Unspecified place in hospital as the place of occurrence of the external cause; G47.00 Insomnia, unspecified
CPT/HCPCS: 36415; 71250; 74176; 76775; 80048; 80053; 81001; 82533; 82550; 82570; 82948; 83605; 83690; 83735; 83880; 84100; 84156; 84300; 84439; 84443; 84466; 84478; 84480; 85025; 85027; 85730; 86140; 86304; 86850; 86900; 86901; 87040; 88307; 96361; 96365; 96366; 96367; 96375; 96376; 97110; 97161; 97165; 97530; 97535; 99285; A9270; C1765; C9113; G0378; J0330; J0360; J0690; J1100; J1642; J1650; J1956; J2250; J2270; J2310; J2370; J2405; J2704; J2710; J2997; J3010; J3480; J7030; J7120